=== PATIENT | female | born 1990 | race Caucasian/White ===

== ENCOUNTER 2016-10-29 23:13 | Emergency (ER) | payer OTHER ==
[2016-10-29 23:25] VITALS: PULSE 68; RESP 18
[2016-10-30] MEDS ORDERED: SODIUM CHLORIDE 0.9% 1,000 ML IV STA (00:07)
[2016-10-30] MEDS ORDERED: ACETAMINOPHEN TAB 500 MG TAB PO STA (00:07)
--- NOTE | 2016-10-30 00:14 | ED ---
Abdominal Pain HPI - General Chief Complaint: Abdominal Pain Stated Complaint: abd pain, 6 wks preg Time Seen by Provider: 10/29/16 23:48 Source: patient, RN notes reviewed Mode of arrival: ambulatory Limitations: no limitations - History of Present Illness Initial Comments: 26-year-old female presents emergency Department chief complaint of abdominal pain in . Patient states about an hour ago she developed this abdominal pain. Patient states that it is always a dull achy type pain and minimal become stabbing at random. Patient states certain movements seem to make it worse. Patient states that she denies nausea or vomiting associated with the pain but the pain gets too bad she will become nauseous. Patient denies any fever chills. Patient denies any burning or stinging with urination. Patient states she is a . Patient states she's believe she is about 6 weeks . Patient states she has not had ultrasound yet in this . Patient states she was concerned due to the severity of her pain so she thought that she should be evaluated.Patient denies any recent fever, chills , shortness of breath, chest pain, back pain, nausea vomiting, numbness or tingling, dysuria or hematuria, constipation or diarrhea, headaches or visual changes, or any other current symptoms. - Related Data Home Medications Medication Instructions Recorded Confirmed Pnv with Ca,No.72/Iron/FA 1 tab PO DAILY 10/29/16 10/29/16 [ Plus Tablet] Previous Rx's Medication Instructions Recorded Nitrofurantoin Macrocrystal 100 mg PO BID #14 cap 10/30/16 [Macrodantin] Allergies Allergy/AdvReac Type Severity Reaction Status Date / Time ciprofloxacin [From Cipro] Allergy Unknown Verified 10/29/16 23:33 Review of Systems ROS Statement: Those systems with pertinent positive or pertinent negative responses have been documented in the HPI. ROS Other: All systems not noted in ROS Statement are negative. Past Medical History Past Medical History: No Reported History History of Any Multi-Drug Resistant Organisms: None Reported Past Surgical History: Section, Cholecystectomy, Orthopedic Surgery Past Psychological History: No Psychological Hx Reported Smoking Status: Current every day smoker Past Alcohol Use History: Rare Past Drug Use History: None Reported General Exam - General Exam Comments Initial Comments: General: The patient is awake and alert, in no distress, and does not appear acutely ill. Eye: Pupils are equal, round and reactive to light, extra-ocular movements are intact; there is normal conjunctiva bilaterally. No signs of icterus. Ears, nose, mouth and throat: There are moist mucous membranes. Neck: The neck is supple, there is no tenderness. Cardiovascular: There is a regular rate and rhythm. No murmur, rub or gallop is appreciated. Respiratory: Lungs are clear to auscultation, respirations are non-labored, breath sounds are equal. No wheezes, stridor, rales, or rhonchi. Gastrointestinal: Soft, non-distended, right lower quadrant tenderness of the abdomen without masses or organomegaly noted. There is no rebound or guarding present. No CVA tenderness. Bowel sounds are unremarkable. Back: There is no tenderness to palpation in the midline. There is no obvious deformity. No rashes noted. Musculoskeletal: Normal ROM, no tenderness, There is no pedal edema. There is no calf tenderness or swelling. Sensation intact. Pulses equal bilaterally 2+. Neurological: CN II-XII intact, There are no obvious motor or sensory deficits. Coordination appears grossly intact. Speech is normal. Skin: Skin is warm and dry and no rashes or lesions are noted. Psychiatric: Cooperative, appropriate mood & affect, normal judgment. Limitations: no limitations External exam: Present: normal external exam Speculum exam: Present: normal speculum exam By manual exam: Present: adnexal tenderness (Minimal tenderness on the right) Course Vital Signs 10/29/16 23:22 Temperature 97.6 F Pulse Rate 68 Respiratory 18 Rate Blood Pressure 122/58 O2 Sat by Pulse 97 Oximetry Medical Decision Making - Medical Decision Making 26-year-old female presents emergency Department chief complaint of right lower quadrant abdominal pain in . At this time ultrasound does not show a viable IUP however there does appear to be a hemorrhagic cyst. At this time we discussed that patient's pain is mostly the from the hemorrhagic cyst as well as a suspicion for UTI in the urine. This time we discussed this on antibiotics are discussed Tylenol for pain control. She is feeling better in the room. Pelvic exam did not have any cervical motion tenderness. Patient did not have extreme right adnexa tenderness after receiving the Tylenol. We did discuss at this time we have not officially rule out ectopic we did discuss that she needs follow-up with a repeat hCG to further evaluate for this. We did discuss return parameters and follow-up with [facility]. The patient stated that she understood all her questions have been answered. She will be discharged. - Lab Data Result diagrams: 10/30/16 00:25 10/30/16 00:25 Lab Results 10/30/16 10/30/16 10/30/16 Range/Units 00:25 00:25 00:25 WBC 13.0 H (3.8-10.6) k/uL RBC 4.57 (3.80-5.40) m/uL Hgb 13.8 (11.4-16.0) gm/dL Hct 40.9 (34.0-46.0) % MCV 89.6 (80.0-100.0) fL MCH 30.2 (25.0-35.0) pg MCHC 33.7 (31.0-37.0) g/dL RDW 13.8 (11.5-15.5) % Plt Count 257 (150-450) k/uL Neutrophils % (Manual) 76.0 % Lymphocytes % (Manual) 20.0 % Monocytes % (Manual) 4.0 % Neutrophils # (Manual) 9.9 H (1.3-7.7) k/uL Lymphocytes # (Manual) 2.6 (1.0-4.8) k/uL Monocytes # (Manual) 0.5 (0-1.0) k/uL Nucleated RBCs 0 (0-0) /100 WBC Manual Slide Review Performed PT (9.0-12.0) sec INR (<1.1) APTT (22.0-30.0) sec Sodium 142 (137-145) mmol/L Potassium 4.3 (3.5-5.1) mmol/L Chloride 107 (98-107) mmol/L Carbon Dioxide 23 (22-30) mmol/L Anion Gap 12 mmol/L BUN 9 (7-17) mg/dL Creatinine 0.70 (0.52-1.04) mg/dL Est GFR (MDRD) Af Amer >60 (>60 ml/min/1.73 sqM) Est GFR (MDRD) Non-Af >60 (>60 ml/min/1.73 sqM) Glucose 98 (74-99) mg/dL Calcium 9.9 (8.4-10.2) mg/dL Total Bilirubin 0.3 (0.2-1.3) mg/dL AST 15 (14-36) U/L ALT 24 (9-52) U/L Alkaline Phosphatase 69 (38-126) U/L Total Protein 7.5 (6.3-8.2) g/dL Albumin 4.4 (3.5-5.0) g/dL HCG, Quant 689.3 mIU/mL Urine Color Urine Appearance (Clear) Urine pH (5.0-8.0) Ur Specific [place] (1.001-1.035) Urine Protein (Negative) Urine Glucose (UA) (Negative) Urine Ketones (Negative) Urine Blood (Negative) Urine Nitrite (Negative) Urine Bilirubin (Negative) Urine Urobilinogen (<2.0) mg/dL Ur Leukocyte Esterase (Negative) Urine RBC (0-5) /hpf Urine WBC (0-5) /hpf Ur Squamous Epith Cells (0-4) /hpf Amorphous Sediment (None) /hpf Urine Mucus (None) /hpf Blood Type O Positive Blood Type Recheck No Antibody Screen NEGATIVE Spec Expiration Date 11/02/2016232410/30/16 10/30/16 Range/Units 00:25 00:25 WBC (3.8-10.6) k/uL RBC (3.80-5.40) m/uL Hgb (11.4-16.0) gm/dL Hct (34.0-46.0) % MCV (80.0-100.0) fL MCH (25.0-35.0) pg MCHC (31.0-37.0) g/dL RDW (11.5-15.5) % Plt Count (150-450) k/uL Neutrophils % (Manual) % Lymphocytes % (Manual) % Monocytes % (Manual) % Neutrophils # (Manual) (1.3-7.7) k/uL Lymphocytes # (Manual) (1.0-4.8) k/uL Monocytes # (Manual) (0-1.0) k/uL Nucleated RBCs (0-0) /100 WBC Manual Slide Review PT 10.6 (9.0-12.0) sec INR 1.0 (<1.1) APTT 25.1 (22.0-30.0) sec Sodium (137-145) mmol/L Potassium (3.5-5.1) mmol/L Chloride (98-107) mmol/L Carbon Dioxide (22-30) mmol/L Anion Gap mmol/L BUN (7-17) mg/dL Creatinine (0.52-1.04) mg/dL Est GFR (MDRD) Af Amer (>60 ml/min/1.73 sqM) Est GFR (MDRD) Non-Af (>60 ml/min/1.73 sqM) Glucose (74-99) mg/dL Calcium (8.4-10.2) mg/dL Total Bilirubin (0.2-1.3) mg/dL AST (14-36) U/L ALT (9-52) U/L Alkaline Phosphatase (38-126) U/L Total Protein (6.3-8.2) g/dL Albumin (3.5-5.0) g/dL HCG, Quant mIU/mL Urine Color Yellow Urine Appearance Cloudy H (Clear) Urine pH 6.5 (5.0-8.0) Ur Specific [place] 1.013 (1.001-1.035) Urine Protein Negative (Negative) Urine Glucose (UA) Negative (Negative) Urine Ketones Negative (Negative) Urine Blood Negative (Negative) Urine Nitrite Negative (Negative) Urine Bilirubin Negative (Negative) Urine Urobilinogen <2.0 (<2.0) mg/dL Ur Leukocyte Esterase Moderate H (Negative) Urine RBC 13 H (0-5) /hpf Urine WBC 38 H (0-5) /hpf Ur Squamous Epith Cells 1 (0-4) /hpf Amorphous Sediment Rare H (None) /hpf Urine Mucus Rare H (None) /hpf Blood Type Blood Type Recheck Antibody Screen Spec Expiration Date - Radiology Data Radiology results: report reviewed, image reviewed Disposition Clinical Impression: Right ovarian cyst, Abdominal pain affecting , UTI (urinary tract infection) Disposition: HOME SELF-CARE Condition: Stable Instructions: Abdominal Pain in (ED) Additional Instructions: Please use medication as discussed. Please follow up with family doctor if symptoms have not improved over the next two days. Please return to the emergency room if your symptoms increase or worsen or for any other concerns. Prescriptions: Nitrofurantoin Macrocrystal [Macrodantin] 100 mg PO BID #14 cap Referrals: Miguel Chung MD [Primary Care Provider] - 1-2 days Niver,Marva, MD [STAFF PHYSICIAN] - 1-2 days Time of Disposition: 02:02
[2016-10-30 00:39] LABS: Aty Lym Flag Marked; CH 29.9; CHCM 33.5; HCT 40.9 % (34.0-46.0); HDW 2.37; HGB 13.8 gm/dL (11.4-16.0); MCH 30.2 pg (25.0-35.0); MCHC 33.7 g/dL (31.0-37.0); MCV 89.6 fL (80.0-100.0); MPO Flag Slight; Mean Platelet Volume 7.3; RBC 4.57 m/uL (3.80-5.40); RDW 13.8 % (11.5-15.5); WBC (Perox) 12.68
[2016-10-30 00:46] LABS: Amorphous Sediment,Urine Rare /hpf; Appearance,Urine Cloudy (Clear); Bilirubin,Urine Negative (Negative); Glucose,Urine (UA) Negative (Negative); Ketones,Urine Negative (Negative); Leukocyte Esterase,Urine Moderate (Negative); Mucus,Urine Rare /hpf; Nitrite,Urine Negative (Negative); PH, Urine 6.5 (5.0-8.0); Particle Count 22025; Protein,Urine Negative (Negative); RBC,Urine 13 /hpf (0-5); Specific Gravity,Urine 1.013 (1.001-1.035); Squamous Epithelial Cell,Urine 1 /hpf (0-4); UA Billing (MACRO vs. MICRO) MICRO; Urobilinogen,Urine <2.0 mg/dL (<2.0); WBC,Urine 38 /hpf (0-5)
[2016-10-30 00:48] LABS: Partial Thromboplastin Time 25.1 sec (22.0-30.0); Prothrombin Time 10.6 sec (9.0-12.0)
[2016-10-30 00:50] LABS: ALT 24 U/L (9-52); AST 15 U/L (14-36); Alkaline Phosphatase 69 U/L (38-126); Anion Gap 12 mmol/L; Blood Urea Nitrogen 9 mg/dL (7-17); Calcium 9.9 mg/dL (8.4-10.2); Carbon Dioxide 23 mmol/L (22-30); Chloride 107 mmol/L (98-107); Glucose 98 mg/dL (74-99); Non-African American GFR(MDRD) >60 (>60 ml/min/1.73 sqM); Potassium 4.3 mmol/L (3.5-5.1); Sodium 142 mmol/L (137-145); Total Bilirubin 0.3 mg/dL (0.2-1.3); Total Protein 7.5 g/dL (6.3-8.2)
[2016-10-30 01:06] LABS: HCG,Quantitative Serum 689.3 mIU/mL
--- NOTE | 2016-10-30 01:13 | US ---
EXAM: US Pelvis Complete, Transabdominal. US Pelvis, Transvaginal. CLINICAL HISTORY: Patient is unsure. She had some bleeding in early september. Last normal menstrual period was 09/14/2016. Pelvic Pain. No bleeding. Patient states she had minimal bleeding in early september. Beta HcG (if available): Not available at time of exam TECHNIQUE: Real-time transabdominal and transvaginal pelvic ultrasound (complete) with image documentation. Transvaginal imaging was used for better evaluation of the endometrium and adnexa. COMPARISON: No relevant prior studies available. FINDINGS: Uterus/cervix: Uterus: 9.1 x 4.6 x 5.0 cm. Endometrium measures 0.4 cm No myometrial mass. Right ovary: Hypoechoic area visualized on right ovary, likely represents a complex cyst measuring 1.9 x 1.2 x 1.3 cm. Right Ovary measures about 4.6 x 2.7 x 2.6 cm. Normal blood flow. Left ovary: Left Ovary measures about 2.9 x 1.5 x 2.3 cm. Normal blood flow. Free fluid: free fluid visualized in the posterior cul de sac and adjacent to the left ovary Bladder: Unremarkable as visualized. Wall is normal thickness for degree of distention. IMPRESSION: 1. Hypoechoic area visualized on right ovary, likely represents a complex/hemorrhagic cyst measuring 1.9 x 1.2 x 1.3 cm. 2. No IUP seen at this time.
[2016-10-30 01:19] LABS: Add Differential Manual Differential
[2016-10-30 01:21] LABS: Manual Review Performed; Nucleated Red Blood Cells 0 /100 WBC (0-0); Total Cells Counted 100
[2016-10-30 02:46] VITALS: BP 112/50; TEMP 97.7
== END 2016-10-30 02:45 | disposition home or self-care (01) ==
LOC: EC 23:13
DX: O34.81 Maternal care for other abnormalities of pelvic organs, first trimester (principal); N83.201 Unspecified ovarian cyst, right side; O23.41 Unspecified infection of urinary tract in pregnancy, first trimester; O99.331 Smoking (tobacco) complicating pregnancy, first trimester; F17.200 Nicotine dependence, unspecified, uncomplicated; Z88.1 Allergy status to other antibiotic agents; Z90.49 Acquired absence of other specified parts of digestive tract; Z3A.01 Less than 8 weeks gestation of pregnancy
CPT/HCPCS: 36415; 76801; 76817; 80053; 81001; 84702; 85025; 85610; 85730; 86850; 86900; 86901; 87077; 87086; 87186; 96360; 99284

== ENCOUNTER → 2016-11-01 | Outpatient (CLI) | payer OTHER | END | disposition home or self-care (01) | LOC: LABMAIN 11:53 | PROVIDERS: ATTEND Physician Assistant | DX: O26.90 Pregnancy related conditions, unspecified, unspecified trimester (principal); Z3A.00 Weeks of gestation of pregnancy not specified | CPT/HCPCS: 36415; 84702 ==

== ENCOUNTER → 2016-11-24 | Outpatient (CLI) | payer OTHER | END | disposition home or self-care (01) | LOC: LABWHC1 15:07 | PROVIDERS: ATTEND Clinical Nurse Specialist Women's Health | DX: O03.9 Complete or unspecified spontaneous abortion without complication (principal) | CPT/HCPCS: 36415; 84702 ==

== ENCOUNTER → 2017-02-05 | Outpatient (CLI) | payer OTHER ==
[2017-02-05 11:06] LABS: CH 29.6; CHCM 33.7; HCT 38.8 % (34.0-46.0); HDW 2.26; HGB 13.4 gm/dL (11.4-16.0); MCH 30.5 pg (25.0-35.0); MCHC 34.5 g/dL (31.0-37.0); MCV 88.4 fL (80.0-100.0); Mean Platelet Volume 7.9; RBC 4.39 m/uL (3.80-5.40); RDW 13.2 % (11.5-15.5); WBC 14.2 k/uL (3.8-10.6)
[2017-02-05 11:53] LABS: Hepatitis B Surface Ag Index 0.05
[2017-02-05 13:13] LABS: Hemoglobin A1C 5.4 % (4.2-6.1)
[2017-02-05 15:27] LABS: Treponemal Ab Non-Reactive (Non-Reactive)
== END | disposition home or self-care (01) ==
LOC: LABWHC1 09:39
PROVIDERS: ATTEND Obstetrics & Gynecology
DX: Z34.80 Encounter for supervision of other normal pregnancy, unspecified trimester (principal)
CPT/HCPCS: 36415; 82950; 83036; 85027; 86762; 86780; 86850; 86900; 86901; 87086; 87340; 87390

== ENCOUNTER 2017-02-15 17:41 | Emergency (ER) | payer OTHER ==
[2017-02-15] MEDS ORDERED: ACETAMINOPHEN TAB 500 MG TAB PO STA (19:29)
[2017-02-15] MEDS ORDERED: SODIUM CHLORIDE 0.9% 1,000 ML IV STA (19:29)
[2017-02-15] MEDS ORDERED: diphenhydrAMINE 50 MG/ML 1 ML VIAL IVP STA (19:29)
[2017-02-15] MEDS ORDERED: METOCLOPRAMIDE 5 MG/ML 2 ML VIAL IVP STA (19:29)
[2017-02-15 20:00] LABS: Aty Lym Flag Marked; CHCM 34.5; HCT 35.5 % (34.0-46.0); HDW 2.32; HGB 12.3 gm/dL (11.4-16.0); MCH 30.2 pg (25.0-35.0); MCHC 34.6 g/dL (31.0-37.0); MCV 87.3 fL (80.0-100.0); MPO Flag Slight; Mean Platelet Volume 7.9; RBC 4.07 m/uL (3.80-5.40); RDW 13.9 % (11.5-15.5); WBC 16.4 k/uL (3.8-10.6); WBC (Perox) 16.44
[2017-02-15 20:04] LABS: Appearance,Urine Clear (Clear); Bacteria,Urine Occasional /hpf; Bilirubin,Urine Negative (Negative); Glucose,Urine (UA) Negative (Negative); Ketones,Urine Negative (Negative); Leukocyte Esterase,Urine Moderate (Negative); Nitrite,Urine Negative (Negative); PH, Urine 7.5 (5.0-8.0); Particle Count 1772; Protein,Urine Negative (Negative); RBC,Urine 2 /hpf (0-5); Specific Gravity,Urine 1.002 (1.001-1.035); Squamous Epithelial Cell,Urine 2 /hpf (0-4); UA Billing (MACRO vs. MICRO) MICRO; Urobilinogen,Urine <2.0 mg/dL (<2.0); WBC,Urine 10 /hpf (0-5)
[2017-02-15 20:20] LABS: Add Differential Manual Differential
[2017-02-15 20:22] LABS: Manual Review Performed; Nucleated Red Blood Cells 0 /100 WBC (0-0); Total Cells Counted 100
[2017-02-15 20:23] LABS: Toxic Granulation Present
--- NOTE | 2017-02-15 20:29 | ED ---
Headache HPI - General Chief Complaint: Headache Stated Complaint: HEADACHE FOR 2 DAYS Time Seen by Provider: 02/15/17 19:21 Source: RN notes reviewed, old records reviewed Mode of arrival: ambulatory Limitations: no limitations - History of Present Illness Initial Comments: Is a 26-year-old female presenting to the emergency Department chief complaint of migraine headache for the past 2 days. Patient reports she's also had some upper respiratory symptoms including cough. Patient reports that she isn't taking her antibiotic and Tylenol without any relief of the migraine-like headache. Patient reports that she's had no neck pain, fevers, or chills. She reports that she's had no chest pain or shortness of breath. She is currently 14 weeks her CARDIAC CATH LAB MANAGER is Dr. Archuleta. She denies any vaginal discharge or bleeding or urinary symptoms. - Related Data Home Medications Medication Instructions Recorded Confirmed Pnv,Calcium 72/Iron/Folic Acid 1 tab PO DAILY 10/29/16 02/15/17 [ Plus Tablet] Amoxicillin 500 mg PO BID 02/15/17 02/15/17 Allergies Allergy/AdvReac Type Severity Reaction Status Date / Time ciprofloxacin [From Cipro] Allergy DIZZINESS Verified 02/15/17 19:29 Review of Systems ROS Statement: Those systems with pertinent positive or pertinent negative responses have been documented in the HPI. ROS Other: All systems not noted in ROS Statement are negative. Past Medical History Past Medical History: No Reported History History of Any Multi-Drug Resistant Organisms: None Reported Past Surgical History: Section, Cholecystectomy, Orthopedic Surgery Past Psychological History: No Psychological Hx Reported Smoking Status: Current every day smoker Past Alcohol Use History: Rare Past Drug Use History: None Reported General Exam - General Exam Comments Initial Comments: This is a well-appearing pleasant 26-year-old female. Patient does not appear to be any acute distress. Limitations: no limitations General appearance: alert, in no apparent distress Head exam: Present: atraumatic, normocephalic, normal inspection Eye exam: Present: normal appearance, PERRL, EOMI. Absent: scleral icterus, conjunctival injection, periorbital swelling ENT exam: Present: normal exam, mucous membranes moist Neck exam: Present: normal inspection. Absent: tenderness, meningismus, lymphadenopathy Respiratory exam: Present: normal lung sounds bilaterally. Absent: respiratory distress, wheezes, rales, rhonchi, stridor Cardiovascular Exam: Present: regular rate, normal rhythm, normal heart sounds. Absent: systolic murmur, diastolic murmur, rubs, gallop, clicks GI/Abdominal exam: Present: soft, normal bowel sounds. Absent: distended, tenderness, guarding, rebound, rigid Extremities exam: Present: normal inspection, full ROM, normal capillary refill. Absent: tenderness, pedal edema, joint swelling, calf tenderness Back exam: Present: normal inspection Neurological exam: Present: alert, oriented X3, CN II-XII intact Expanded Patient oriented to: Present: person, place, time Speech: Present: fluid speech Cranial nerves: EOM's Intact: Normal Cerebellar function: Finger to Nose: Normal Upper motor neuron: Pronator Drift: Normal Sensory exam: Upper Extremity Light Touch: Normal, Lower Extremity Light Touch: Normal Motor strength exam: RUE: 5, LUE: 5, RLE: 5, LLE: 5 Eye Response: (4) open spontaneously Motor Response: (6) obeys commands Verbal Response: (5) oriented [place] Total: 15 Psychiatric exam: Present: normal affect, normal mood Skin exam: Present: warm, dry, intact, normal color. Absent: rash Course Vital Signs 02/15/17 18:30 Temperature 98.0 F Pulse Rate 87 Respiratory 18 Rate Blood Pressure 138/66 O2 Sat by Pulse 99 Oximetry Medical Decision Making - Medical Decision Making Is a 26-year-old female presenting to the emergency Department chief complaint of migraine headache for the past 2 days. Patient reports she's also had some upper respiratory symptoms including cough. Patient reports that she isn't taking her antibiotic and Tylenol without any relief of the migraine-like headache. Patient was given Reglan, Benadryl, IV fluids. CBC BMP and urinalysis obtained. Patient's CBC is somewhat elevated but could be due to regnancy and her current upper respiratory infection. She has no meningeal signs or any other symptoms. Patient is neurologically intact. Patient's heart tones measuring 150. Lab work was reviewed and show mild leukocytosis with could be related to her sinusitis as well as . Patient started on amoxicillin. Patient was evaluated by Dr. Salazar as well. Discussed possibility of computed tomography scan. Patient at this time declines. Patient has been advised to rest, remain hydrated. Return if there is any worsening signs or symptoms. Patient agrees to treatment plan will comply. - Lab Data Result diagrams: 02/15/17 19:50 Lab Results 02/15/17 02/15/17 Range/Units 19:50 19:50 WBC 16.4 H (3.8-10.6) k/uL RBC 4.07 (3.80-5.40) m/uL Hgb 12.3 (11.4-16.0) gm/dL Hct 35.5 (34.0-46.0) % MCV 87.3 (80.0-100.0) fL MCH 30.2 (25.0-35.0) pg MCHC 34.6 (31.0-37.0) g/dL RDW 13.9 (11.5-15.5) % Plt Count 275 (150-450) k/uL Neutrophils % (Manual) 69.0 % Band Neutrophils % 1.0 % Lymphocytes % (Manual) 29.0 % Eosinophils % (Manual) 1.0 % Neutrophils # (Manual) 11.5 H (1.3-7.7) k/uL Lymphocytes # (Manual) 4.8 (1.0-4.8) k/uL Eosinophils # (Manual) 0.2 (0-0.7) k/uL Nucleated RBCs 0 (0-0) /100 WBC Manual Slide Review Performed Toxic Granulation Present Poikilocytosis (manual Present Urine Color Light Yellow Urine Appearance Clear (Clear) Urine pH 7.5 (5.0-8.0) Ur Specific [place] 1.002 (1.001-1.035) Urine Protein Negative (Negative) Urine Glucose (UA) Negative (Negative) Urine Ketones Negative (Negative) Urine Blood Trace H (Negative) Urine Nitrite Negative (Negative) Urine Bilirubin Negative (Negative) Urine Urobilinogen <2.0 (<2.0) mg/dL Ur Leukocyte Esterase Moderate H (Negative) Urine RBC 2 (0-5) /hpf Urine WBC 10 H (0-5) /hpf Ur Squamous Epith Cells 2 (0-4) /hpf Urine Bacteria Occasional H (None) /hpf Disposition Clinical Impression: Headache, Sinusitis Disposition: HOME SELF-CARE Condition: Good Instructions: Acute Headache (ED), (ED) Additional Instructions: Patient advised to complete the antibiotics as previously prescribed. Rest, remain hydrated. Return to the emergency department if any alarming signs or symptoms occur. Referrals: Miguel Chung MD [Primary Care Provider] - 1-2 days Time of Disposition: 21:17
[2017-02-15 21:29] VITALS: BP 104/55; PULSE 60; RESP 16; TEMP 98
== END 2017-02-15 21:29 | disposition home or self-care (01) ==
LOC: EC 17:41
DX: O99.512 Diseases of the respiratory system complicating pregnancy, second trimester (principal); J32.9 Chronic sinusitis, unspecified; O99.332 Smoking (tobacco) complicating pregnancy, second trimester; F17.200 Nicotine dependence, unspecified, uncomplicated; R40.2412 Glasgow coma scale score 13-15, at arrival to emergency department; Z3A.14 14 weeks gestation of pregnancy; Z86.69 Personal history of other diseases of the nervous system and sense organs; Z90.49 Acquired absence of other specified parts of digestive tract; Z88.1 Allergy status to other antibiotic agents; Z79.899 Other long term (current) drug therapy
CPT/HCPCS: 99284; 96374; 96375; 96361 ×2; 36415; 85025; 81001; J1200; J2765

== ENCOUNTER → 2017-05-13 | Outpatient (CLI) | payer OTHER | END | disposition home or self-care (01) | LOC: LABWHC1 08:43 | PROVIDERS: ATTEND Obstetrics & Gynecology | DX: Z34.90 Encounter for supervision of normal pregnancy, unspecified, unspecified trimester (principal); Z3A.00 Weeks of gestation of pregnancy not specified | CPT/HCPCS: 36415; 82950 ==

== ENCOUNTER 2017-08-09 09:57 | Inpatient (IN) | payer OTHER ==
[2017-08-04 23:08] VITALS: BMI 31.4
[2017-08-09] MEDS ORDERED: CITRIC ACID-SODIUM CITRATE 15 ML CUP PO ONE (10:00)
[2017-08-09] MEDS: LACTATED RINGERS 1,000 ML IV SCH ×2 (10:40→15:28)
[2017-08-09] MEDS ORDERED: ceFAZolin IN SWFI 2 GM/20 ML SYRINGE IVP ONE (11:09)
[2017-08-09 11:23] LABS: HCT 37.2 % (34.0-46.0); HGB 12.3 gm/dL (11.4-16.0); MCH 29.5 pg (25.0-35.0); MCV 89.4 fL (80.0-100.0); Mean Platelet Volume 8.9; Platelet Count 255 k/uL (150-450); RBC 4.16 m/uL (3.80-5.40); WBC 15.6 k/uL (3.8-10.6)
--- NOTE | 2017-08-09 11:38 | P.HPOB ---
History of Present Illness H&P Date: 08/09/17 This is a 27-year-old white female 3 para 1011 EDC 08/13/2017 at 39-3/7 weeks' gestation. Patient presents today for repeat low transverse section and tubal ligation. Her has been essentially unremarkable, except for poor maternal weight gain. Weekly nonstress tests have all been reactive. Fetus is been active throughout the . She denies fluid leakage or vaginal bleeding. Past medical history is significant for chronic rhinitis and sinusitis, history of ovarian cysts. Past surgical history section 2011, cholecystectomy 2011, right knee arthroscopy in the past. Current medications vitamins daily. ALLERGIES to send to which reports dizziness. Family history is significant for hypertension, cerebrovascular accidents, and myocardial infarctions. Past surgical history is significant for section 2011. Social history patient is a smoker, she admits to one half pack per day tobacco , she is single and father of the baby is involved. history blood type is O+, rubella status immune. Urine culture, hepatitis B surface antigen, HIV testing, gonorrhea and chlamydia cultures all negative. One-hour Glucola 112. Group B strep culture positive. On exam this is a pleasant young female, 5 foot 2 inches, 173 pounds, blood pressure 113/61. The general physical exam is within normal limits. The chest is clear. Patient has poor dentition. Extremities reveal no edema. heart rate is consistent with reactive NST. Cervix is long posterior and closed. Impression: 39-3/7 weeks intrauterine , previous section declining option for . Patient requesting permanent tubal sterilization. Plan: Prophylactic antibiotics are given. We will proceed with repeat low transverse section and tubal ligation. All risks benefits and alternatives of this plan have been reviewed in detail. Review of Systems Negative except as in HPI Past Medical History Past Medical History: GERD/Reflux History of Any Multi-Drug Resistant Organisms: None Reported Past Surgical History: Section, Cholecystectomy, Orthopedic Surgery Additional Past Surgical History / Comment(s): arthroscopy knee Past Anesthesia/Blood Transfusion Reactions: No Reported Reaction Past Psychological History: No Psychological Hx Reported Smoking Status: Current every day smoker Past Alcohol Use History: Rare Additional Past Alcohol Use History / Comment(s): 1/2ppd since teens Past Drug Use History: None Reported - Past Family History Mother Family Medical History: CVA/TIA Additional Family Medical History / Comment(s): in her 40's due to elevated BP Medications and Allergies Home Medications Medication Instructions Recorded Confirmed Type Pnv,Calcium 72/Iron/Folic Acid 1 tab PO DAILY 10/29/16 08/09/17 History [ Plus Tablet] Ferrous Sulfate [Iron] 325 mg PO DAILY 07/01/17 08/03/17 History Ranitidine HCl [Zantac] 150 mg PO DAILY 08/03/17 08/03/17 History Allergies Allergy/AdvReac Type Severity Reaction Status Date / Time ciprofloxacin [From Cipro] Allergy DIZZINESS Verified 08/03/17 15:46 Exam - Vital Signs Vital signs: Vital Signs Temp Pulse Resp BP Pulse Ox 08/09/17 10:08 97.9 F 77 16 113/61 98 Intake and Output 08/08/17 08/09/17 08/09/17 22:59 06:59 14:59 Other: Weight 78.018 kg Patient Weight 08/10/17 06:59 Weight 78.018 kg See dictation under HPI please Results Result Diagrams: 08/09/17 10:35 Abnormal Lab Results - Last 24 Hours (Table) 08/09/17 Range/Units 10:35 WBC 15.6 H (3.8-10.6) k/uL Assessment and Plan Plan: For repeat low transverse section and tubal ligation. Prophylactic antibiotics to be given. Time with Patient: Less than 30
[2017-08-09 11:39] LABS: Band Neutrophils % 1 %; Myelocytes # (M) 0.31 k/uL (0); Myelocytes % 2 %; Nucleated Red Blood Cells 0 /100 WBC (0-0)
[2017-08-09 11:41] LABS: Eosinophils # (M) 0.16 k/uL (0-0.7); Monocytes # (M) 0.62 k/uL (0-1.0); Neutrophils % (M) 78 %; Total Cells Counted 200; Toxic Granulation Present
[2017-08-09] MEDS ORDERED: PHENYLEPHRINE-0.9% NACL SYG 1 MG/10 ML SYRINGE ONE (11:42)
[2017-08-09] MEDS ORDERED: OXYTOCIN 10 UNIT/ML 1 ML VIAL ONE (11:42)
[2017-08-09] MEDS ORDERED: fentaNYL (PF) 50 MCG/ML 2 ML AMP ONE (11:42)
[2017-08-09] MEDS ORDERED: ONDANSETRON 4 MG/2 ML VIAL ONE (11:42)
[2017-08-09] MEDS ORDERED: NALBUPHINE 10 MG/ML AMPUL ONE (11:42)
[2017-08-09] MEDS ORDERED: KETOROLAC 30 MG/ML 1 ML VIAL ONE (11:42)
[2017-08-09] MEDS ORDERED: MORPHINE SULFATE (PF) 0.3 MG/0.3 ML SYR ONE (11:42)
[2017-08-09] MEDS ORDERED: diphenhydrAMINE 50 MG/ML 1 ML VIAL IVP PRN ×3 (12:16→12:38)
[2017-08-09] MEDS ORDERED: NALOXONE 0.4 MG/ML 1 ML VIAL IV PRN ×2 (12:16→12:38)
[2017-08-09] MEDS ORDERED: MORPHINE SULFATE 5 MG/ML SYRINGE IVP PRN (12:16)
[2017-08-09] MEDS ORDERED: ONDANSETRON 4 MG/2 ML VIAL IVP PRN ×2 (12:16→12:38)
[2017-08-09] MEDS ORDERED: ACETAMINOPHEN TAB 325 MG TAB PO PRN ×2 (12:38→12:40)
[2017-08-09] MEDS ORDERED: diphenhydrAMINE 25 MG CAP PO PRN (12:38)
[2017-08-09] MEDS ORDERED: diphenhydrAMINE 50 MG CAP PO PRN (12:38)
[2017-08-09] MEDS ORDERED: METOCLOPRAMIDE 5 MG/ML 2 ML VIAL IVP PRN (12:38)
[2017-08-09] MEDS ORDERED: ZOLPIDEM 5 MG TAB PO PRN (12:38)
--- NOTE | 2017-08-09 12:38 | P.OP ---
Date of Procedure: 08/09/17 Preoperative Diagnosis: 39-3/7 weeks, undesired fertility, previous declining Postoperative Diagnosis: Liveborn male infant, nuchal cord 1. Procedure(s) Performed: Repeat low transverse section with tubal ligation Anesthesia: spinal Surgeon: Marva Sargent Director Public #1: Juanita Deshpande Estimated Blood Loss (ml): 600 IV fluids (ml): 900 Urine output (ml): 200 Pathology: other Condition: stable (Placenta) Disposition: PACU Description of Procedure: Patient is brought to the operating suite where a spinal with Duramorph is administered. She's placed in the dorsal supine position with left lateral uterine displacement. Antibiotics are given. The appropriate timeout is performed to assure proper patient and procedural identification, and patient's desire for tubal ligation is once again confirmed. The abdomen is prepped and draped in the usual sterile fashion. The analgesia is checked and noted to be adequate. A repeat low transverse skin incision is made, this is carried down through the thin subcutaneous layer of approximately 2 cm. The fascia is isolated, scored, and extended bilaterally with curved Mackey scissors. The peritoneum is next identified and incised, there was no bowel or bladder involvement. The bladder blade is placed over the bladder and at all times the bladder is kept well from the operative field to avoid bladder and/or ureteral injury. A repeat low transverse uterine incision is made and carried down through the myometrium. Artificial amniorrhexis reveals clear fluid. The uterine incision is extended with blunt dissection. The 's head is delivered in the occiput anterior position. There is a nuchal cord 1 that was easily reduced. The nasopharynx, and external nares are all bulb suctioned on the abdomen. Patient is officially delivered of a liveborn male at 1203 hrs. Umbilical cord is doubly clamped and ligated, he is handed to waiting nurses for evaluation where scores of 8 and 9 at one and 5 minutes respectively are given. The placenta is delivered manually, it is inspected and noted to be intact with trivascular cord at 1204 hrs. The uterus is swept clean with a sterile sponge to avoid any retained products of conception. The uterus is externalized. It is massaged. Pitocin is given. The edges of the incision are grasped with Garza clamps. The uterus is closed in a single full- thickness locking stitch of 0 Vicryl for excellent hemostasis and reapproximation. The abdomen is suctioned with suction on guard. Filshie clips are used in the isthmic portions of both tubes, with care to traverse the entire diameter of the tube into the mesal salpinx. Fimbria are identified for proper placement. Ovaries are normal to inspection. Uterus is gently placed back into the abdominal cavity. Bilateral gutters are inspected and cleaned. Again, hemostasis is excellent. The peritoneum was allowed to close by secondary intention. The fascia is closed in a running stitch of 0 Vicryl with over ligation in the midline. Subcutaneous tissue was irrigated, noted to be clean and dry. It is reapproximated with 3-0 Vicryl in a running stitch. 4-0 undyed Monocryl is used in a subcuticular manner for final skin closure. Steri-Strips and Mastisol are applied to the wound. The uterus is massaged for a small amount of blood. Maldonado is noted to be draining clear urine. Patient is brought back to recovery room in very good condition with stable vital signs including blood pressure 107/52, pulse 76. They are requesting circumcision further son.
[2017-08-09] MEDS: NICOTINE 21MG/24HR PATCH TRANSDERM SCH (15:27)
[2017-08-09] MEDS: KETOROLAC 30 MG/ML 1 ML VIAL IVP PRN (20:52)
[2017-08-09] MEDS: SENNOSIDES-DOCUSATE SODIUM 1 EACH TAB PO SCH (20:52)
[2017-08-10 01:06] VITALS: RESP 16
--- NOTE | 2017-08-10 06:28 | P.PN ---
Subjective Progress Note Date: 08/10/17 Principal diagnosis: Postoperative day #1 Slept well. Positive flatus. Pain well controlled. Objective - Vital Signs Vital signs: Vital Signs Temp 98.1 F 08/10/17 04:00 Pulse 56 L 08/10/17 04:00 Resp 16 08/10/17 05:00 BP 101/54 08/10/17 04:00 Pulse Ox 98 08/10/17 05:00 Intake & Output 08/09/17 08/09/17 08/10/17 06:59 18:59 06:59 Intake Total 360 Output Total 400 300 Balance -40 -300 Weight 78.018 kg Intake: Oral 360 Output: Urine 400 300 Straight 150 - Constitutional General appearance: Present: average body habitus, cooperative - EENT Eyes: Present: PERRLA ENT: Present: hearing grossly normal - Neck Thyroid: bilateral: normal size - Respiratory Respiratory: bilateral: CTA - Cardiovascular Rhythm: regular Heart sounds: normal: S1, S2 - Gastrointestinal General gastrointestinal: Present: normal bowel sounds - Genitourinary Genitourinary Comment(s): Fundus firm, symmetric, midline, 18 week size. Incision clean and dry, well approximated. - Integumentary Integumentary: Present: normal - Neurologic Neurologic: Present: CNII-XII intact - Musculoskeletal Musculoskeletal: Present: gait normal, strength equal bilaterally - Psychiatric Psychiatric: Present: A&O x's 3, appropriate affect, intact judgment & insight - Labs CBC & Chem 7: 08/09/17 10:35 Labs: Abnormal Lab Results - Last 24 Hours (Table) 08/09/17 Range/Units 10:35 WBC 15.6 H (3.8-10.6) k/uL Neutrophils # (Manual) 12.30 H (1.3-7.7) k/uL Myelocytes # (Manual) 0.31 H (0) k/uL Assessment and Plan Plan: Advance diet and activity. Circumcision this morning. Time with Patient: Less than 30
[2017-08-10] MEDS: LACTATED RINGERS 1,000 ML IV SCH ×5 (08:25→10:04)
--- NOTE | 2017-08-10 09:08 | P.PN ---
Progress Note - Text Anesthesia POD 1. Patient is status post under spinal anesthesia with intra-thecal preservative free morphine 300 g. Mild pruritus, good post- op analgesia, and no headache or other complications.
[2017-08-10 09:09] LABS: HCT 27.3 % (34.0-46.0); MCH 29.9 pg (25.0-35.0); MCHC 33.1 g/dL (31.0-37.0); MCV 90.3 fL (80.0-100.0); Mean Platelet Volume 8.8; Platelet Count 201 k/uL (150-450); RBC 3.02 m/uL (3.80-5.40); RDW 14.3 % (11.5-15.5); WBC 13.1 k/uL (3.8-10.6)
[2017-08-10 09:12] LABS: HGB 9.1 gm/dL (11.4-16.0)
[2017-08-10] MEDS: SENNOSIDES-DOCUSATE SODIUM 1 EACH TAB PO SCH ×2 (10:04→13:24)
[2017-08-10] MEDS: KETOROLAC 30 MG/ML 1 ML VIAL IVP PRN (10:12)
[2017-08-10 10:33] LABS: Band Neutrophils % 1 %; Eosinophils # (M) 0.13 k/uL (0-0.7); Lymphocytes # (M) 0.66 k/uL (1.0-4.8); Monocytes # (M) 0.26 k/uL (0-1.0); Neutrophils % (M) 91 %; Nucleated Red Blood Cells 0 /100 WBC (0-0); Total Cells Counted 100
[2017-08-10 10:34] LABS: Anisocytosis (M) Present
[2017-08-10] MEDS: Acetaminophen-Codeine 300-30mg TAB PO PRN (15:22)
[2017-08-10] MEDS: NICOTINE 21MG/24HR PATCH TRANSDERM SCH (15:23)
[2017-08-11] MEDS: Acetaminophen-Codeine 300-30mg TAB PO PRN ×2 (00:01→07:42)
--- NOTE | 2017-08-11 08:22 | P.DS ---
Providers Date of admission: 08/09/17 09:57 Expected date of discharge: 08/11/17 Attending physician: Marva [facility] Course: Is a 27-year-old white female 3 para 1011 EDC 08/13/2017 at 39-3/7 weeks ' gestation. Patient presented for repeat low transverse section and tubal ligation. was unremarkable, rubella status immune, blood type O positive, group B strep cultures positive. Please see my dictated history and physical for details. Her went a repeat low transverse section. She gave to a liveborn male infant with scores of 8 and 9 at one and 5 minutes respectively. Infant weight 3040 g or 6 lbs. 11 oz. Tubal ligation was performed without difficulty. Please see my dictated operative note for details. This morning the patient is doing well. She is voiding, ambulating, passing flatus without difficulty. Vital signs are stable and she has remained afebrile. Fundus is firm and in the midline, symmetric, 18 week size, nontender. Externally's are negative for edema. Chest is clear in all hicks. Patient is not breast-feeding, breasts are not engorged. [place] infant circumcision has been performed. Patient is being discharged home today in very good condition. She will follow- up with me in the office in have reminded her no intercourse, tampons or douching. No driving for 2 weeks. No heavy lifting. She will use over-the- counter ibuprofen products, 200 mg pills, 3 every 6 hours as needed for pain. She will continue taking her vitamin daily. I've asked her to call me with any fevers shakes or chills, foul smelling or copious lochia, with the passage of large blood clots, with any pain not alleviated by [id number] products, or indeed with any concerns. Infant will follow-up with is analyst as recommended. Patient Condition at Discharge: Good Plan - Discharge Summary New Discharge Prescriptions: No Action Pnv,Calcium 72/Iron/Folic Acid [ Plus Tablet] 1 tab PO DAILY Ferrous Sulfate [Iron] 325 mg PO DAILY Ranitidine HCl [Zantac] 150 mg PO DAILY Discharge Medication List Pnv,Calcium 72/Iron/Folic Acid [ Plus Tablet] 1 tab PO DAILY 10/29/16 [ History] Ferrous Sulfate [Iron] 325 mg PO DAILY 07/01/17 [History] Ranitidine HCl [Zantac] 150 mg PO DAILY 08/03/17 [History] Follow up Appointment(s)/Referral(s): Marva Sargent MD [STAFF PHYSICIAN] - 2 Weeks Discharge Disposition: HOME SELF-CARE
[2017-08-11 08:53] VITALS: BP 135/68; PULSE 74; TEMP 98.2
== END 2017-08-11 11:15 | disposition home or self-care (01) | DRG 766 ==
LOC: 4FBP 09:57
PROVIDERS: ADMIT Obstetrics & Gynecology; ATTEND Obstetrics & Gynecology
PROC: 0UB70ZZ Excision of Bilateral Fallopian Tubes, Open Approach (ICD-10-PCS; 2017-08-09)
PROC: 3E0R3NZ Introduction of Analgesics, Hypnotics, Sedatives into Spinal Canal, Percutaneous Approach (ICD-10-PCS; 2017-08-09)
PROC: 00HU33Z Insertion of Infusion Device into Spinal Canal, Percutaneous Approach (ICD-10-PCS; 2017-08-09)
PROC: 10D00Z1 Extraction of Products of Conception, Low, Open Approach (ICD-10-PCS; principal; 2017-08-09 12:00)
DX: O34.211 Maternal care for low transverse scar from previous cesarean delivery (principal); F17.200 Nicotine dependence, unspecified, uncomplicated; K21.9 Gastro-esophageal reflux disease without esophagitis; O99.62 Diseases of the digestive system complicating childbirth; O69.81X0 Labor and delivery complicated by cord around neck, without compression, not applicable or unspecified; O99.334 Smoking (tobacco) complicating childbirth; Z3A.39 39 weeks gestation of pregnancy; Z90.49 Acquired absence of other specified parts of digestive tract; Z37.0 Single live birth; Z82.49 Family history of ischemic heart disease and other diseases of the circulatory system; Z79.899 Other long term (current) drug therapy; Z88.1 Allergy status to other antibiotic agents
CPT/HCPCS: 85025; 86850; 86900; 86901; 88307

== ENCOUNTER 2017-12-02 14:53 | Emergency (ER) | payer OTHER ==
[2017-12-02 14:58] VITALS: BP 173/77; PULSE 75; RESP 20; TEMP 98.1
--- NOTE | 2017-12-02 15:23 | ED ---
ENT HPI - General Chief complaint: ENT Stated complaint: congestion/facial pain Time Seen by Provider: 12/02/17 15:15 Source: patient, RN notes reviewed Mode of arrival: ambulatory Limitations: no limitations - History of Present Illness Initial comments: This is a 27-year-old female who presents to the emergency department with chief complaint of right ear pain. Patient states that she developed right ear pain yesterday when she woke up from a nap in the afternoon. She also admits to a runny nose and phlegm in the back of her throat. She denies fevers or chills, cough, sore throat, chest pain or shortness breath, abdominal pain, nausea or vomiting, headache or dizziness. Patient states that she did clean out the ear with hydrogen peroxide. - Related Data Home Medications Medication Instructions Recorded Confirmed Ibuprofen/Pseudoephedrine HCl 1 tab PO Q6H PRN 12/02/17 12/02/17 [Advil Cold & Sinus Caplet] Previous Rx's Medication Instructions Recorded Amoxicillin 875 mg PO Q8HR #30 tablet 12/02/17 Loratadine [Claritin] 10 mg PO DAILY #10 tab 12/02/17 Allergies Allergy/AdvReac Type Severity Reaction Status Date / Time ciprofloxacin [From Cipro] AdvReac DIZZINESS Verified 12/02/17 15:18 Review of Systems ROS Statement: Those systems with pertinent positive or pertinent negative responses have been documented in the HPI. ROS Other: All systems not noted in ROS Statement are negative. Past Medical History Past Medical History: GERD/Reflux History of Any Multi-Drug Resistant Organisms: None Reported Past Surgical History: Section, Cholecystectomy, Orthopedic Surgery Additional Past Surgical History / Comment(s): arthroscopy knee Past Anesthesia/Blood Transfusion Reactions: No Reported Reaction Past Psychological History: No Psychological Hx Reported Smoking Status: Current every day smoker Past Alcohol Use History: Rare Past Drug Use History: None Reported - Past Family History Mother Family Medical History: CVA/TIA Additional Family Medical History / Comment(s): in her 40's due to elevated BP General Exam - General Exam Comments Initial Comments: General: Awake and alert, well-developed; in no apparent distress. Patient is tearful, stating that she is in a lot of pain. HEENT: Head atraumatic, normocephalic. Pupils are equal, round and reactive to light. Extraocular movements intact. Oropharynx moist without erythema or exudate. No tenderness on palpation of maxillary or frontal sinuses. Left TM is pearly without effusion. Right external ear canal is erythematous. The TM is dull appearing. Neck: Supple. Normal ROM. Cardiovascular: Regular rate and rhythm. No murmurs, rubs or gallops. Chest symmetrical. Respiratory: Lungs clear to auscultation bilaterally. No wheezes, rales or rhonchi. Normal respiratory effort with no use of accessory muscles. Musculoskeletal: Normal ROM, no tenderness bilateral upper and lower extremities. Ambulating normally. Skin: Spring, warm and dry without rashes or lesions. Neurological: Alert and oriented x3. CN II-XII grossly intact. Speech is fluent and answers are appropriate. No focal neuro deficits. Psychiatric: Normal mood and affect. No overt signs of depression or anxiety noted. Limitations: no limitations Course Vital Signs 12/02/17 14:56 Temperature 98.1 F Pulse Rate 75 Respiratory 20 Rate Blood Pressure 173/77 O2 Sat by Pulse 100 Oximetry Medical Decision Making - Medical Decision Making This is a 27-year-old female who presents to the emergency department with chief complaint of right ear pain. Patient is very tearful, complaining of a lot of pain in the right ear. On physical examination, there is a small abrasion in the right external canal and TM is dull-appearing. Patient denies any fevers or chills, dental pain, sore throat, cough, abdominal pain, nausea or vomiting. She will be started on antibiotics as well as Claritin for acute otitis media. Patient is in no acute distress and will be discharged home at this time. She is in agreement with plan and voices understanding. All questions were answered. Disposition Clinical Impression: Otitis media Disposition: HOME SELF-CARE Condition: Good Instructions: Otitis Media (ED) Additional Instructions: Please take medications as prescribed. Please follow up with primary care provider within 1-2 days. Return to emergency department if symptoms should worsen or any concerns arise. Prescriptions: Amoxicillin 875 mg PO Q8HR #30 tablet Loratadine [Claritin] 10 mg PO DAILY #10 tab Is patient prescribed a controlled substance at d/c from ED?: No Referrals: Miguel Chung MD [Primary Care Provider] - 1-2 days Time of Disposition: 15:44
== END 2017-12-02 15:58 | disposition home or self-care (01) ==
LOC: EC 14:53
DX: S00.411A Abrasion of right ear, initial encounter (principal); H66.91 Otitis media, unspecified, right ear; R09.89 Other specified symptoms and signs involving the circulatory and respiratory systems; F17.200 Nicotine dependence, unspecified, uncomplicated; Z88.1 Allergy status to other antibiotic agents
CPT/HCPCS: 99283

== ENCOUNTER 2019-01-06 16:50 | Inpatient (IN) | payer BC, OTHER ==
[2019-01-06] MEDS ORDERED: MORPHINE SULFATE 4 MG/ML SYRINGE IVP STA (18:55)
[2019-01-06] MEDS ORDERED: KETOROLAC 30 MG/ML 1 ML VIAL IVP STA (19:27)
--- NOTE | 2019-01-06 19:27 | ED ---
Abdominal Pain HPI - General Source: patient Mode of arrival: ambulatory Limitations: no limitations <Katey Ba - Last Filed: 01/06/19 20:56> <Justin Salazar - Last Filed: 01/06/19 21:42> - General Chief Complaint: Abdominal Pain Stated Complaint: Pelvic and back pain Time Seen by Provider: 01/06/19 18:29 - History of Present Illness Initial Comments: 28-year-old female with history of previous tubal ligation, pyelonephritis presents today for chief complaint of lower pelvic pain with radiation to the right back. Patient states for the past 2 days she has had lower pelvic pressure and pain that began radiating to his right side of her back. Patient states she has had previous kidney infections however this does not feel very similar. Patient denies nausea, vomiting, diarrhea, fever, chills. Pt denies chest pain or SOB. Patient denies dysuria, urgency, frequency. Patient denies vaginal bleeding or . Remaining ROS (-). Upon arrival patient appears uncomfortable, VS reveal elevation of HR. BP stable. (Katey Ba) - Related Data Home Medications Medication Instructions Recorded Confirmed Phentermine HCl [Adipex-P] 37.5 mg PO DAILY 01/06/19 01/06/19 Allergies Allergy/AdvReac Type Severity Reaction Status Date / Time ciprofloxacin [From Cipro] AdvReac DIZZINESS Verified 01/06/19 21:00 Review of Systems ROS Other: All systems not noted in ROS Statement are negative. <Katey Ba - Last Filed: 01/06/19 20:56> ROS Other: All systems not noted in ROS Statement are negative. <Justin Salazar - Last Filed: 01/06/19 21:42> ROS Statement: Those systems with pertinent positive or pertinent negative responses have been documented in the HPI. Past Medical History Past Medical History: GERD/Reflux History of Any Multi-Drug Resistant Organisms: None Reported Past Surgical History: Section, Cholecystectomy, Orthopedic Surgery Additional Past Surgical History / Comment(s): arthroscopy knee Past Anesthesia/Blood Transfusion Reactions: No Reported Reaction Past Psychological History: No Psychological Hx Reported Smoking Status: Current every day smoker Past Alcohol Use History: Occasional Past Drug Use History: None Reported - Past Family History Mother Family Medical History: CVA/TIA Additional Family Medical History / Comment(s): in her 40's due to elevated BP <Katey Ba Clotilde - Last Filed: 01/06/19 20:56> General Exam Limitations: no limitations <Katey Ba Clotilde - Last Filed: 01/06/19 20:56> - General Exam Comments Initial Comments: General: The patient is awake and alert Eye: Pupils are equal, round and reactive to light, extra-ocular movements are intact. No nystagmus. There is normal conjunctiva bilaterally. No signs of icterus. Ears, nose, mouth and throat: There are moist mucous membranes and no oral lesions. Neck: The neck is supple, there is no tenderness or JVD. Cardiovascular: There is a regular rate and rhythm. No murmur, rub or gallop is appreciated. Respiratory: Lungs are clear to auscultation, respirations are non-labored, breath sounds are equal. No wheezes, stridor, rales, or rhonchi. Gastrointestinal: Soft, non-distended, lower pelvic region is diffusely tender to palpation abdomen without masses or organomegaly noted. There is no rebound or guarding present. No CVA tenderness. Bowel sounds are unremarkable. Pelvic: Normal female hair pattern. [place] well rugated vaginal mucosa no blood in vault. scant amount of discharge without odor. No cervical motion tenderness, mild b/l adnexal tenderness. Musculoskeletal: Normal ROM, no tenderness. Strength 5/5. Sensation intact. Pulses equal bilaterally 2+. Neurological: A&O x 3. CN II-XII intact, There are no obvious motor or sensory deficits. Coordination appears grossly intact. Speech is normal. Skin: Skin is warm and dry and no rashes or lesions are noted. Psychiatric: Cooperative, appropriate mood & affect, normal judgment. (Katey Ba) Course Vital Signs 01/06/19 01/06/19 17:32 21:00 Temperature 98.2 F 99.2 F Pulse Rate 105 H 70 Respiratory 20 16 Rate Blood Pressure 146/88 109/59 O2 Sat by Pulse 98 96 Oximetry Medical Decision Making - Lab Data Result diagrams: 01/06/19 19:30 01/06/19 19:30 <Katey Ba - Last Filed: 01/06/19 20:56> - Lab Data Result diagrams: 01/06/19 19:30 01/06/19 19:30 <Justin Salazar - Last Filed: 01/06/19 21:42> - Medical Decision Making 28-year-old female presenting for evaluation of lower pelvic pain it's been ongoing for the past 2 days. Patient states she has a history pyelonephritis, she states she usually has no urinary symptoms when she has these infections-any current urgency frequency or dysuria. Patient states 2 days ago she did have hematuria. Patient denies any fevers. Marked leukocytosis at 19. Aside from US remaining laboratory studies unremarkable. Upon pelvic exam patient did have bilateral tenderness. Pelvic US WAS OBTAINED REVEALING A EQUIVOCAL STUDY FOR RIGHT-SIDED OVARIAN TORSION. THIS FINDING WAS IMMEDIATELY DISCUSSED WITH MY ATTENDING PROVIDER. UA revealed findings more consistent with pyelonpehritis. Pt did have pain relief with toradol. Patient was evaluated by attenidng provider in person, Dr. Salazar who will continue care and consult OBGYN, and admit patient. (Katey Ba) 28-year-old female presenting with bilateral lower abdominal pain and lower back pain. Patient has previous history of pyelonephritis. She denies current urinary symptoms. Denies unilateral abdominal pain, states his bilateral lower abdominal pain. Denies vaginal discharge. Workup initiated in the emergency department, includes pelvic ultrasound which shows decreased flow to the right ovary, intermittent arterial flow. There is no mass, no cyst, normal sized ovary. I did discuss his case with Dr. Deshpande, covering for [employer]. Given this presentation, feels this is likely incidental finding as there is no ovarian mass and history and symptomatology is not consistent with torsion. Will follow-up as an outpatient. Patient states he has significantly elevated white count at 19.7. She has urina lysis consistent with severe infection, nitrate positive. Urine culture is pending. Patient is initiated on antibiotics awaiting culture results. She will be admitted for pyelonephritis. (Justin Salazar) - Lab Data Lab Results 01/06/19 01/06/19 01/06/19 Range/Units 19:30 19:30 19:30 WBC 19.7 H (3.8-10.6) k/uL RBC 4.74 (3.80-5.40) m/uL Hgb 14.2 (11.4-16.0) gm/dL Hct 41.2 (34.0-46.0) % MCV 87.0 (80.0-100.0) fL MCH 29.9 (25.0-35.0) pg MCHC 34.4 (31.0-37.0) g/dL RDW 13.5 (11.5-15.5) % Plt Count 298 (150-450) k/uL Neutrophils % (Manual) 70 % Band Neutrophils % 2 % Lymphocytes % (Manual) 26 % Monocytes % (Manual) 2 % Neutrophils # [employer] Neutrophils # (Manual) 14.10 H (1.3-7.7) k/uL Lymphocytes # (Manual) 5.12 H (1.0-4.8) k/uL Monocytes # (Manual) 0.39 (0-1.0) k/uL Nucleated RBCs 0 (0-0) /100 WBC Manual Slide Review Performed Sodium 139 (137-145) mmol/L Potassium 3.8 (3.5-5.1) mmol/L Chloride 107 (98-107) mmol/L Carbon Dioxide 23 (22-30) mmol/L Anion Gap 9 mmol/L BUN 6 L (7-17) mg/dL Creatinine 0.83 (0.52-1.04) mg/dL Est GFR (CKD-EPI)AfAm >90 (>60 ml/min/1.73 sqM) Est GFR (CKD-EPI)NonAf >90 (>60 ml/min/1.73 sqM) Glucose 76 (74-99) mg/dL Calcium 9.6 (8.4-10.2) mg/dL Total Bilirubin 0.4 (0.2-1.3) mg/dL AST 18 (14-36) U/L ALT 16 (9-52) U/L Alkaline Phosphatase 89 (38-126) U/L Total Protein 7.9 (6.3-8.2) g/dL Albumin 4.5 (3.5-5.0) g/dL Amylase 46 (30-110) U/L Lipase 17 L (23-300) U/L HCG, Quant <2.4 mIU/mL Urine Color Urine Appearance (Clear) Urine pH (5.0-8.0) Ur Specific [place] (1.001-1.035) Urine Protein (Negative) Urine Glucose (UA) (Negative) Urine Ketones (Negative) Urine Blood (Negative) Urine Nitrite (Negative) Urine Bilirubin (Negative) Urine Urobilinogen (<2.0) mg/dL Ur Leukocyte Esterase (Negative) Urine WBC (0-5) /hpf Urine WBC Clumps (None) /hpf Ur Squamous Epith Cells (0-4) /hpf Urine Mucus (None) /hpf Urine HCG, Qual Not Detected (Not Detectd) 01/06/19 Range/Units 19:30 WBC (3.8-10.6) k/uL RBC (3.80-5.40) m/uL Hgb (11.4-16.0) gm/dL Hct (34.0-46.0) % MCV (80.0-100.0) fL MCH (25.0-35.0) pg MCHC (31.0-37.0) g/dL RDW (11.5-15.5) % Plt Count (150-450) k/uL Neutrophils % (Manual) % Band Neutrophils % % Lymphocytes % (Manual) % Monocytes % (Manual) % Neutrophils # Neutrophils # (Manual) (1.3-7.7) k/uL Lymphocytes # (Manual) (1.0-4.8) k/uL Monocytes # (Manual) (0-1.0) k/uL Nucleated RBCs (0-0) /100 WBC Manual Slide Review Sodium (137-145) mmol/L Potassium (3.5-5.1) mmol/L Chloride (98-107) mmol/L Carbon Dioxide (22-30) mmol/L Anion Gap mmol/L BUN (7-17) mg/dL Creatinine (0.52-1.04) mg/dL Est GFR (CKD-EPI)AfAm (>60 ml/min/1.73 sqM) Est GFR (CKD-EPI)NonAf (>60 ml/min/1.73 sqM) Glucose (74-99) mg/dL Calcium (8.4-10.2) mg/dL Total Bilirubin (0.2-1.3) mg/dL AST (14-36) U/L ALT (9-52) U/L Alkaline Phosphatase (38-126) U/L Total Protein (6.3-8.2) g/dL Albumin (3.5-5.0) g/dL Amylase (30-110) U/L Lipase (23-300) U/L HCG, Quant mIU/mL Urine Color Yellow Urine Appearance Turbid H (Clear) Urine pH 6.0 (5.0-8.0) Ur Specific [place] 1.014 (1.001-1.035) Urine Protein 2+ H (Negative) Urine Glucose (UA) Negative (Negative) Urine Ketones Negative (Negative) Urine Blood Moderate H (Negative) Urine Nitrite Positive H (Negative) Urine Bilirubin Negative (Negative) Urine Urobilinogen <2.0 (<2.0) mg/dL Ur Leukocyte Esterase Large H (Negative) Urine WBC >182 H (0-5) /hpf Urine WBC Clumps Many H (None) /hpf Ur Squamous Epith Cells 2 (0-4) /hpf Urine Mucus Moderate H (None) /hpf Urine HCG, Qual (Not Detectd) Disposition <Katey Ba - Last Filed: 01/06/19 20:56> Is patient prescribed a controlled substance at d/c from ED?: No Decision to Admit Reason: Admit from EC Decision Date: 01/06/19 Decision Time: 21:41 <Justin Salazar - Last Filed: 01/06/19 21:42> Clinical Impression: Pyelonephritis Disposition: ADMITTED IP TO THIS HOSP Condition: Stable Referrals: Miguel Chung MD [Primary Care Provider] - 1-2 days
[2019-01-06 20:02] LABS: HCT 41.2 % (34.0-46.0); HGB 14.2 gm/dL (11.4-16.0); MCH 29.9 pg (25.0-35.0); MCHC 34.4 g/dL (31.0-37.0); Mean Platelet Volume 8.1; Platelet Count 298 k/uL (150-450); RBC 4.74 m/uL (3.80-5.40); RDW 13.5 % (11.5-15.5); WBC 19.7 k/uL (3.8-10.6)
--- NOTE | 2019-01-06 20:05 | CT ---
EXAMINATION TYPE: CT abdomen pelvis w con DATE OF EXAM: 01/06/2019 COMPARISON: None HISTORY: RLQ pain CT DLP: 989.6 mGycm Automated exposure control for dose reduction was used. TECHNIQUE: Helical acquisition of images was performed from the lung bases through the pelvis. CONTRAST: Performed without Oral Contrast and with IV Contrast, patient injected with 100 mL of Isovue 300. FINDINGS: There is mild subsegmental atelectasis at the lung bases. Heart size is normal. There is no pericardi al effusion. There is no pleural effusion. Liver spleen stomach pancreas appear normal. Bile ducts are not dilated. There are clips from cholecy stectomy. There is no adrenal mass. Kidneys have normal size and contour. There is right-sided hydronephrosis a nd hydroureter. There is right-sided perinephric edema. There is periureteral edema. I see no uretera l calculus. Bladder distends smoothly. There is 2 cm cyst on the left ovary. Uterus is anteverted. Th ere is tiny amount of free fluid in the pelvis. There are clips from tubal ligation. There is no mesenteric edema. There are multiple enlarged small bowel mesenteric lymph nodes that lucero sure up to 1 cm. There is no sign of a bowel obstruction. There is lower abdominal ventral hernia that contains fat and measures 5 x 2 cm. There is no sign of free air. There is no ascites. There is no sign of thickened appendix. Lumbar vertebra have normal sp acing and alignment. Posterior elements are intact. Bony pelvis is intact. IMPRESSION: THERE IS RIGHT-SIDED HYDRONEPHROSIS AND HYDROURETER. NO STONE SEEN. THIS COULD RELATE TO NONOPAQUE ST ONE OR RECENTLY PASSED STONE. NO RENAL ATROPHY. THIS IS CONSISTENT WITH ACUTE OBSTRUCTION. LEFT OVARIAN CYST. MINIMAL FREE FLUID. MILD MESENTERIC ADENOPATHY.
[2019-01-06 20:09] LABS: ALT 16 U/L (9-52); AST 18 U/L (14-36); African American GFR (CKD) >90 (>60 ml/min/1.73 sqM); Albumin 4.5 g/dL (3.5-5.0); Alkaline Phosphatase 89 U/L (38-126); Amylase 46 U/L (30-110); Anion Gap 9 mmol/L; Blood Urea Nitrogen 6 mg/dL (7-17); Calcium 9.6 mg/dL (8.4-10.2); Carbon Dioxide 23 mmol/L (22-30); Chloride 107 mmol/L (98-107); Glucose 76 mg/dL (74-99); Lipase 17 U/L (23-300); Potassium 3.8 mmol/L (3.5-5.1); Sodium 139 mmol/L (137-145); Total Bilirubin 0.4 mg/dL (0.2-1.3); Total Protein 7.9 g/dL (6.3-8.2)
[2019-01-06 20:12] LABS: Appearance,Urine Turbid (Clear); Bilirubin,Urine Negative (Negative); Blood,Urine Moderate (Negative); Color,Urine Yellow; Glucose,Urine (UA) Negative (Negative); Ketones,Urine Negative (Negative); Leukocyte Esterase,Urine Large (Negative); Mucus,Urine Moderate /hpf; Nitrite,Urine Positive (Negative); Protein,Urine 2+ (Negative); Specific Gravity,Urine 1.014 (1.001-1.035); Squamous Epithelial Cell,Urine 2 /hpf (0-4); Urobilinogen,Urine <2.0 mg/dL (<2.0); WBC,Urine >182 /hpf (0-5)
[2019-01-06 20:26] LABS: HCG,Quantitative Serum <2.4 mIU/mL
[2019-01-06] MEDS ORDERED: cefTRIAXone IN SWFI 1,000 MG/10 ML SYRINGE IVP STA (20:28)
--- NOTE | 2019-01-06 20:36 | US ---
EXAMINATION TYPE: US transvaginal DATE OF EXAM: 01/06/2019 COMPARISON: NONE CLINICAL HISTORY: Pain. Patient in severe pain, worse on right. TECHNIQUE: Transvaginal (TV). Date of LMP: 12/21/18 EXAM MEASUREMENTS: Uterus: 9.5 x 4.8 x 5.3 cm Endometrial Stripe: 1.0 cm Right Ovary: 2.6 x 2.3 x 1.7 cm Left Ovary: 3.1 x 2.6 x 2.5 cm Technically difficult due to patients immense pain level. 1. Uterus: Anteverted wnl 2. Endometrium: wnl 3. Right Ovary: Color doppler and pulsed doppler showed no flow through most of exam. However, flow was seen during exam. Before pulsed wave was taken and after pulsed wave was taken flow was not seen. ?Ovary be torsed and briefly untorse during exam?? 4. Left Ovary: wnl Spectral, color and waveform doppler imaging shows good arterial and venous flow within the LEFT ov andreina there is no evidence for ovarian torsion on left. 5. Bilateral Adnexa: wnl 6. Posterior cul-de-sac: wnl Can't rule out torsion of right ovary. IMPRESSION: We could not demonstrate consistent arterial waveform in the right ovarian artery and this is equivoc al for torsion. There are definitely decreased waveforms in the right ovary and artery compared to th e left.
[2019-01-06 21:03] LABS: Band Neutrophils % 2 %; Lymphocytes # (M) 5.12 k/uL (1.0-4.8); Monocytes # (M) 0.39 k/uL (0-1.0); Neutrophils % (M) 70 %; Nucleated Red Blood Cells 0 /100 WBC (0-0); Total Cells Counted 100
[2019-01-06] MEDS ORDERED: IBUPROFEN 400 MG TAB PO PRN (21:37)
[2019-01-06] MEDS ORDERED: NALOXONE 0.4 MG/ML 1 ML VIAL IV PRN (21:37)
[2019-01-06] MEDS ORDERED: ONDANSETRON 4 MG/2 ML VIAL IVP PRN (21:37)
[2019-01-06] MEDS ORDERED: ACETAMINOPHEN TAB 325 MG TAB PO PRN (21:37)
[2019-01-06] MEDS ORDERED: MORPHINE SULFATE 4 MG/ML SYRINGE IV PRN (21:37)
[2019-01-06 22:53] VITALS: BMI 34.1
[2019-01-06] MEDS: SODIUM CHLORIDE 0.9% 1,000 ML IV SCH (22:56)
[2019-01-07] MEDS: SODIUM CHLORIDE 0.9% 1,000 ML IV SCH (07:14)
[2019-01-07] MEDS ORDERED: metroNIDAZOLE 500 MG TAB PO ONE (08:00)
[2019-01-07 08:13] LABS: ALT 72 U/L (9-52); AST 66 U/L (14-36); African American GFR (CKD) >90 (>60 ml/min/1.73 sqM); Albumin 3.6 g/dL (3.5-5.0); Alkaline Phosphatase 87 U/L (38-126); Anion Gap 5 mmol/L; Blood Urea Nitrogen 10 mg/dL (7-17); Calcium 8.7 mg/dL (8.4-10.2); Carbon Dioxide 23 mmol/L (22-30); Chloride 111 mmol/L (98-107); Glucose 104 mg/dL (74-99); HCT 37.2 % (34.0-46.0); HGB 12.2 gm/dL (11.4-16.0); MCH 28.9 pg (25.0-35.0); MCHC 32.9 g/dL (31.0-37.0); MCV 87.8 fL (80.0-100.0); Mean Platelet Volume 8.1; Platelet Count 256 k/uL (150-450); Potassium 4.1 mmol/L (3.5-5.1); RBC 4.24 m/uL (3.80-5.40); RDW 14.3 % (11.5-15.5); Sodium 139 mmol/L (137-145); Total Bilirubin 0.3 mg/dL (0.2-1.3); Total Protein 6.4 g/dL (6.3-8.2); WBC 9.2 k/uL (3.8-10.6)
[2019-01-07 09:14] VITALS: RESP 18
[2019-01-07 09:56] LABS: Eosinophils # (M) 0.09 k/uL (0-0.7); Lymphocytes # (M) 1.56 k/uL (1.0-4.8); Monocytes # (M) 0.74 k/uL (0-1.0); Neutrophils # (M) 6.81 k/uL (1.3-7.7); Neutrophils % (M) 74 %; Nucleated Red Blood Cells 0 /100 WBC (0-0); Total Cells Counted 100
[2019-01-07] MEDS ORDERED: ENOXAPARIN 40 MG/0.4 ML SYRINGE SQ SCH (12:15)
[2019-01-07] MEDS ORDERED: Phentermine Hcl [Adipex-P] PO SCH (12:15)
--- NOTE | 2019-01-07 14:55 | P.GSCN ---
History of Present Illness Consult date: 01/07/19 Reason for Consult: Right hydronephrosis Requesting physician: Ector Casillas History of present illness: The patient is a 28-year-old white female with no prior history of urolithiasis. She has been treated for infrequent UTIs in the past. She began to experience right-sided back pain radiating to the abdomen on 01/04/2019. She had a single episode of hematuria on January 04, but no other associated symptoms. Her pain worsened yesterday and she thus presented to the emergency room. A CT scan showed evidence of right hydronephrosis, but no calculi were seen. Urinalysis was consistent with a UTI, and she was found to have leukocytosis. She was subsequently admitted and is now asymptomatic. Review of Systems - Constitutional Denies chills, Denies fever - Gastrointestinal Denies nausea, Denies vomiting - Genitourinary Genitourinary: Reports flank pain, Reports hematuria, Denies dysuria Past Medical History Past Medical History: GERD/Reflux Additional Past Medical History / Comment(s): ovarian cysts History of Any Multi-Drug Resistant Organisms: None Reported Past Surgical History: Section, Cholecystectomy, Orthopedic Surgery, Tubal Ligation Additional Past Surgical History / Comment(s): arthroscopy knee Past Anesthesia/Blood Transfusion Reactions: No Reported Reaction Past Psychological History: No Psychological Hx Reported Smoking Status: Current every day smoker Past Alcohol Use History: Rare Additional Past Alcohol Use History / Comment(s): 1/2ppd since teens Past Drug Use History: None Reported - Past Family History Mother Family Medical History: CVA/TIA, Hypertension Additional Family Medical History / Comment(s): in her 40's due to elevated BP Medications and Allergies Home Medications Medication Instructions Recorded Confirmed Type Phentermine HCl [Adipex-P] 37.5 mg PO DAILY 01/06/19 01/06/19 History Allergies Allergy/AdvReac Type Severity Reaction Status Date / Time ciprofloxacin [From Cipro] AdvReac DIZZINESS Verified 01/06/19 22:54 Surgical - Exam Vital Signs Temp Pulse Resp BP Pulse Ox 98.2 F 105 H 20 146/88 98 01/06/19 17:32 01/06/19 17:32 01/06/19 17:32 01/06/19 17:32 01/06/19 17:32 - General well developed, well nourished, no distress - Respiratory normal respiratory effort - Abdomen Abdomen: soft, non tender, no guarding, no rigid, no rebound - Psychiatric oriented to time, oriented to person, oriented to place, speech is normal, memory intact Results - Labs 01/07/19 07:42 01/07/19 07:42 Abnormal Lab Results - Last 24 Hours (Table) 01/06/19 01/06/19 01/06/19 Range/Units 19:30 19:30 19:30 WBC 19.7 H (3.8-10.6) k/uL Neutrophils # (Manual) 14.10 H (1.3-7.7) k/uL Lymphocytes # (Manual) 5.12 H (1.0-4.8) k/uL Chloride (98-107) mmol/L BUN 6 L (7-17) mg/dL Glucose (74-99) mg/dL AST (14-36) U/L ALT (9-52) U/L Lipase 17 L (23-300) U/L Urine Appearance Turbid H (Clear) Urine Protein 2+ H (Negative) Urine Blood Moderate H (Negative) Urine Nitrite Positive H (Negative) Ur Leukocyte Esterase Large H (Negative) Urine WBC >182 H (0-5) /hpf Urine WBC Clumps Many H (None) /hpf Urine Mucus Moderate H (None) /hpf Trichomonas Ag (Rapid) (Negative) 01/06/19 01/07/19 Range/Units 22:25 07:42 WBC (3.8-10.6) k/uL Neutrophils # (Manual) (1.3-7.7) k/uL Lymphocytes # (Manual) (1.0-4.8) k/uL Chloride 111 H (98-107) mmol/L BUN (7-17) mg/dL Glucose 104 H (74-99) mg/dL AST 66 H (14-36) U/L ALT 72 H (9-52) U/L Lipase (23-300) U/L Urine Appearance (Clear) Urine Protein (Negative) Urine Blood (Negative) Urine Nitrite (Negative) Ur Leukocyte Esterase (Negative) Urine WBC (0-5) /hpf Urine WBC Clumps (None) /hpf Urine Mucus (None) /hpf Trichomonas Ag (Rapid) Positive H (Negative) Microbiology - Last 24 Hours (Table) 01/06/19 19:30 Urine Culture - Preliminary Urine,Voided 01/06/19 22:25 Genital Culture - Preliminary Cervix Diabetes panel 01/06/19 01/07/19 Range/Units 19:30 07:42 Sodium 139 139 (137-145) mmol/L Potassium 3.8 4.1 (3.5-5.1) mmol/L Chloride 107 111 H (98-107) mmol/L Carbon Dioxide 23 23 (22-30) mmol/L BUN 6 L 10 (7-17) mg/dL Creatinine 0.83 0.76 (0.52-1.04) mg/dL Glucose 76 104 H (74-99) mg/dL Calcium 9.6 8.7 (8.4-10.2) mg/dL AST 18 66 H (14-36) U/L ALT 16 72 H (9-52) U/L Alkaline Phosphatase 89 87 (38-126) U/L Total Protein 7.9 6.4 (6.3-8.2) g/dL Albumin 4.5 3.6 (3.5-5.0) g/dL Calcium panel 01/06/19 01/07/19 Range/Units 19:30 07:42 Calcium 9.6 8.7 (8.4-10.2) mg/dL Albumin 4.5 3.6 (3.5-5.0) g/dL Pituitary panel 01/06/19 01/07/19 Range/Units 19:30 07:42 Sodium 139 139 (137-145) mmol/L Potassium 3.8 4.1 (3.5-5.1) mmol/L Chloride 107 111 H (98-107) mmol/L Carbon Dioxide 23 23 (22-30) mmol/L BUN 6 L 10 (7-17) mg/dL Creatinine 0.83 0.76 (0.52-1.04) mg/dL Glucose 76 104 H (74-99) mg/dL Calcium 9.6 8.7 (8.4-10.2) mg/dL Adrenal panel 01/06/19 01/07/19 Range/Units 19:30 07:42 Sodium 139 139 (137-145) mmol/L Potassium 3.8 4.1 (3.5-5.1) mmol/L Chloride 107 111 H (98-107) mmol/L Carbon Dioxide 23 23 (22-30) mmol/L BUN 6 L 10 (7-17) mg/dL Creatinine 0.83 0.76 (0.52-1.04) mg/dL Glucose 76 104 H (74-99) mg/dL Calcium 9.6 8.7 (8.4-10.2) mg/dL Total Bilirubin 0.4 0.3 (0.2-1.3) mg/dL AST 18 66 H (14-36) U/L ALT 16 72 H (9-52) U/L Alkaline Phosphatase 89 87 (38-126) U/L Total Protein 7.9 6.4 (6.3-8.2) g/dL Albumin 4.5 3.6 (3.5-5.0) g/dL - Imaging CT scan - abdomen: report reviewed, image reviewed Assessment and Plan (1) Hydronephrosis Current Visit: Yes Status: Acute Code(s): N13.30 - UNSPECIFIED HYDRONEPHROSIS SNOMED Code(s): 22553371 (2) UTI (urinary tract infection) Current Visit: Yes Status: Acute Code(s): N39.0 - URINARY TRACT INFECTION, SITE NOT SPECIFIED SNOMED Code(s): 92961605 Plan: I had a lengthy discussion with the patient and her fianc. I explained that her symptoms, along with the finding of right hydroureteronephrosis on CT scan, are suggestive of renal colic due to a distal ureteral calculus. A calculus is not seen on CT scan, so it is likely she passed it. However, I made clear to her that a CT scan tia-kaew-cmd false-negative results, and that she could be as ymptomatic despite a persistent ureteral calculus. I also discussed the fact that ongoing ureteral obstruction may result in loss of renal function, even in the absence of symptoms. I feel it is reasonable for her to be discharged home on broad-spectrum oral antibiotics, as the urine culture is pending. She was advised to follow-up with me in 1-2 weeks. If the UTI clears and she remains asymptomatic, a renal ultrasound will be obtained in 1 month to confirm resolution of hydronephrosis. Conversely, if her symptoms recur, she may require further evaluation. Please notify me if I can be of any further assistance. Time with Patient: Greater than 30
[2019-01-07 16:31] VITALS: BP 107/62; PULSE 60; TEMP 98
--- NOTE | 2019-01-07 23:08 | HP ---
HISTORY AND PHYSICAL HISTORY AND PHYSICAL EXAMINATION/DISCHARGE SUMMARY: DATE OF ADMISSION: January 06, 2019. DATE OF SERVICE: 01/07/2019 DATE OF DISCHARGE: 01/07/2019. PRESENTING COMPLAINT: Right flank pain. HISTORY OF PRESENTING COMPLAINT: This is a very pleasant 28-year-old patient of Dr. Chung. Rather in good health. On Wednesday, started having cramping in the lower abdomen and then got a bit better and then again, she had further episodes that was much worse on and symptoms got much worse on Wednesday that is yesterday. Patient also developed pain in the right flank and posteriorly. There was no nausea, vomiting, fever. Patient developed dark-colored urine. The patient presented in the ER. Patient had a white count and CT scan of the abdomen and pelvis showed right-sided hydronephrosis and hydroureter. The patient was started on IV ceftriaxone. When I saw the patient this afternoon, patient's symptoms completely resolved. Overall feeling much better, tolerating a diet. REVIEW OF SYSTEMS: CONSTITUTIONAL: Tired. HEENT: None. RESPIRATORY: None. CARDIOVASCULAR: None. GASTROINTESTINAL: None. GENITOURINARY: None. MUSCULOSKELETAL none. DERMATOLOGICAL, HEMATOLOGIC, LYMPHATIC: none. PSYCHIATRY none. NEUROLOGICAL none. PAST MEDICAL HISTORY: GERD, ovarian cyst. PAST SURGICAL HISTORY: , cholecystectomy, tubal ligation, arthroscopy of knee. SOCIAL HISTORY: Smokes a half a pack a day. Alcohol rarely. Lives with her fiancee. 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 FAMILY HISTORY: Stroke and hypertension. HOME MEDICATIONS: Adipex P 37.5 p.o. daily. ALLERGIES: CIPRO. PHYSICAL EXAMINATION: VITAL SIGNS: Vital signs on presentation: Temperature 98.2, pulse 105, respirations 20, blood pressure 146/88, pulse ox 98% on room air. GENERAL APPEARANCE: Well built, BMI 34.1, sitting up, comfortable. EYES: Pupils equal. Conjunctivae normal. HEENT: External appearance of nose and ears normal. Oral cavity normal. NECK: JVD not raised. Mass not palpable. RESPIRATORY: Effort normal. LUNGS are clear. CARDIOVASCULAR: First and second sounds normal. No edema. ABDOMEN: Soft, nontender. Liver and spleen not palpable. LYMPHATICS: No lymph nodes palpable in the neck and axilla. PSYCHIATRY: Alert and oriented x3. Mood and affect normal. NEUROLOGICAL: Pupils equal. Cranial nerves intact. Power and sensation grossly intact. INVESTIGATIONS: White count 19.7, hemoglobin 14.2, potassium 3.8. BUN and creatinine is normal. Urine positive for nitrite, leukocyte esterase, WBC. CT scan of the abdomen and pelvis shows right-sided hydronephrosis and hydroureter. ASSESSMENT: 1. Acute right-sided pyelonephritis with hydronephrosis and hydroureter, probably from right-sided ureteral stone that really did not show up on the CT scan. Has been on IV fluids and antibiotics as clinically responding. 2. Chronic nicotine dependence, patient is a cigarette smoker. 3. Gastroesophageal reflux disease. 4. Obesity, BMI 34.1. PLAN: Did get IV fluids overnight. Doing much better. Did get IV ceftriaxone. The patient was seen by Dr. Kirby. He has also okayed the patient to be discharged. DISPOSITION: Discharge home. HOME MEDICATIONS: Ceftin 500 mg b.i.d. for 7 days. FOLLOWUP: Follow up with Dr. Chung in 1 week. Follow up with Dr. Mazariegos in 2 weeks. This is both a history physical and discharge summary on this patient. Copy to Dr. Chung. MMODL / IJN: [id number] /
--- NOTE | 2019-01-08 07:24 | DS ---
DISCHARGE SUMMARY DATE OF ADMISSION: January 06, 2019. DATE OF DISCHARGE: January 07, 2019. Please refer to my H and P from yesterday. This is both a history physical and discharge summary on this patient. Copy to Dr. Chung. MMODL / IJN: [id number] /
[2019-01-08 15:47] LABS: C. trachomatis,PCR Negative (Neg,Equiv); Chlamydia trachomatis Source Vagina
[2019-01-08 15:48] LABS: N. gonorrhoeae,PCR Negative (Neg,Equiv); Neisseria Source Vagina
== END 2019-01-07 17:46 | disposition home or self-care (01) | DRG 690 ==
LOC: EC 16:50 → 6PED 21:38 → OBSVTOIN 01-07 14:38
PROVIDERS: ADMIT Hospitalist; ATTEND Hospitalist
DX: N13.6 Pyonephrosis (principal); E66.9 Obesity, unspecified; K21.9 Gastro-esophageal reflux disease without esophagitis; F17.210 Nicotine dependence, cigarettes, uncomplicated; Z98.51 Tubal ligation status; Z88.1 Allergy status to other antibiotic agents; Z98.891 History of uterine scar from previous surgery; Z90.49 Acquired absence of other specified parts of digestive tract; Z82.3 Family history of stroke; Z68.34 Body mass index [BMI] 34.0-34.9, adult; Z82.49 Family history of ischemic heart disease and other diseases of the circulatory system; Z87.440 Personal history of urinary (tract) infections
CPT/HCPCS: 36415; 74177; 76830; 80053; 81001; 81025; 82150; 83690; 84702; 85025; 87070; 87077; 87086; 87186; 87205; 87491; 87591; 87808; 93975; 96374; 96375; 99285

== ENCOUNTER → 2019-06-24 | Outpatient (CLI) | payer BC, OTHER ==
--- NOTE | 2019-06-25 20:24 | CT ---
EXAMINATION TYPE: CT abdomen wo/w con DATE OF EXAM: 06/24/2019 COMPARISON: 01/06/2019 HISTORY: 29-year-old female Hemangioma of liver. Follow up from US. TECHNIQUE: Contiguous axial scanning of the abdomen before and after administration of 100 ml Isovue 300 IV contrast. Delayed images through the kidneys and coronal/sagittal reconstructions performed. CT DLP: 1502 mGycm Automated exposure control for dose reduction was used. FINDINGS: Heart normal size without pericardial effusion. Dependent atelectasis in the visualized lung bases wi thout pleural effusion. Prominent pericardial recess along the right inferior pulmonary vein. Liver mildly enlarged to 18.5 cm. Density between the liver and spleen on portal venous phase is rela tively similar arguing against any significant fatty infiltration. No biliary ductal dilatation. Port al venous system is patent. Cholecystectomy clips. Adrenal glands, kidneys, spleen, and pancreas appear within normal limits. The previous right-sided h ydronephrosis has resolved. Numerous scattered prominent mesenteric lymph nodes measuring up to 5 mm. Overall decreased in size f rom 01/06/2019 suggesting a reactive/post inflammatory etiology. Partially visualized normal appendix. Moderate stool in the right side of the colon. Partially visualized fat-containing ventral abdominal wall hernia measuring approximately 4.5 cm wide along the infraumbilical region. The pelvis is not imaged. Bones: No osseous destructive process. IMPRESSION: 1. NO DISCRETE HEPATIC HEMANGIOMA IS IDENTIFIED ON MULTIPHASIC LIVER CT. IF THIS WAS A FINDING SEEN O N AND ULTRASOUND STUDY, CONSIDER A THREE-MONTH PRECAUTIONARY FOLLOW-UP ULTRASOUND TO REASSESS. 2. MILD HEPATOMEGALY (18.5 CM). 3. NUMEROUS SCATTERED PROMINENT MESENTERIC LYMPH NODES MEASURING UP TO 5 MM ARE OVERALL DECREASED IN SIZE FROM 01/06/2019 SUGGESTING A REACTIVE/POST INFLAMMATORY ETIOLOGY. 4. PARTIALLY VISUALIZED VENTRAL ABDOMINAL WALL FAT-CONTAINING HERNIA ALONG THE INFRA UMBILICAL REGION , FULLY VISUALIZED ON THE 01/06/2019 EXAM. 5. INTERVAL RESOLUTION OF THE PREVIOUSLY SEEN RIGHT-SIDED HYDRONEPHROSIS.
== END | disposition home or self-care (01) ==
LOC: RADCTMAIN 09:13
PROVIDERS: ATTEND Family Medicine
DX: K43.9 Ventral hernia without obstruction or gangrene (principal); N13.39 Other hydronephrosis; R16.0 Hepatomegaly, not elsewhere classified; D18.03 Hemangioma of intra-abdominal structures
CPT/HCPCS: 74170; Q9967 ×2

== ENCOUNTER → 2021-06-06 | Outpatient (CLI) | payer BC, OTHER ==
[2021-06-07 00:13] LABS: Basophils # (A) 0.07 X 10*3/uL (0.00-0.10); Basophils % (A) 0.5 %; Eosinophils # (A) 0.21 X 10*3/uL (0.04-0.35); Eosinophils % (A) 1.6 %; HCT 39.3 % (37.2-46.3); HGB 12.4 g/dL (12.0-15.0); Lymphocytes # (A) 3.93 X 10*3/uL (0.90-5.00); Lymphocytes % (A) 29.9 %; MCH 27.7 pg (27.0-32.0); MCHC 31.6 g/dL (32.0-37.0); MCV 87.7 fL (80.0-97.0); Mean Platelet Volume 11.6 fL (9.5-12.2); Monocytes # (A) 0.71 X 10*3/uL (0.20-1.00); Monocytes % (A) 5.4 %; Neutrophils # (A) 8.16 X 10*3/uL (1.80-7.70); Neutrophils % (A) 62.1 %; Platelet Count 340 X 10*3/uL (140-440); RBC 4.48 X 10*6/uL (4.10-5.20); RDW 14.9 % (11.5-14.5); WBC 13.15 X 10*3/uL (4.50-10.00)
== END | disposition home or self-care (01) ==
LOC: LABWHC1 13:48
PROVIDERS: ATTEND Obstetrics & Gynecology
DX: Z01.812 Encounter for preprocedural laboratory examination (principal)
CPT/HCPCS: 36415; 85025

== ENCOUNTER → 2021-06-09 | Day surgery (SDC) | payer BC, OTHER ==
[2021-06-04 13:26] VITALS: BMI 39.3
--- NOTE | 2021-06-05 13:48 | HP ---
HISTORY AND PHYSICAL DATE OF SURGERY: 06/09/2021 This is a 31-year-old female, 3, para 2-0-1-2, who presents with a history of tubal ligation and heavy seven-day menses, with clot passage. She is requesting NovaSure endometrial ablation. Office endometrial sampling has been done and is within normal limits. All risks, benefits and alternatives have been discussed in detail. PAST MEDICAL HISTORY: Significant for dysmenorrhea, hyperhidrosis, kidney stones, ovarian cysts, rhinitis, sinusitis, HSV and cholelithiasis, as well as eustachian tube dysfunction. PAST SURGICAL HISTORY: section 2011, cholecystectomy 2011, right knee arthroscopy and tubal ligation. CURRENT MEDICATIONS: Crestor 5 mg daily, vitamin daily. ALLERGIES: CIPROFLOXACIN, to which she reports dizziness. FAMILY HISTORY: Significant for cardiac disease, hypertension, CVA. OBSTETRIC HISTORY: Significant for section x2 and miscarriage not requiring D and C. SOCIAL HISTORY: Patient is a former tobacco smoker, one-half pack per day. She is single. 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 She denies alcohol or drug use. PHYSICAL EXAMINATION: Patient is 5 feet 1-1/2 inches, 213 pounds, BMI 40, blood pressure 122/76, pulse 68. Patient is afebrile. HEENT examination is negative. No thyromegaly. No cervical lymphadenopathy. CHEST: Clear to auscultation in all hicks anteriorly and posteriorly. Cardiac exam reveals a regular rate and rhythm with no murmur, click or rub. Abdomen is moderately obese. No organosplenomegaly, no masses, active bowel sounds. No CVA tenderness. Extremities reveal no edema, good range of motion, good peripheral pulses. Breasts are bilaterally symmetric to inspection with no skin dimpling, nipple discharge or adenopathy noted. Cervix is small and multiparous. Pap smear is up to date and normal. Uterus is nontender, mobile, smooth, mid position. Adnexa negative bilaterally. Rectal exam reveals normal sphincter tone. No hemorrhoids, no masses. Lymphatic exam is negative. Skin exam reveals no rashes or lesions, no areas of discoloration. NEUROLOGIC EXAM: Patient is showing good insight and judgment, normal mood and affect. She is grossly oriented x3. IMPRESSION: Longstanding dysmenorrhea and menorrhagia, requesting NovaSure endometrial ablation. Previous tubal ligation noted. PLAN: We will proceed with hysteroscopy, NovaSure endometrial ablation. Risks, benefits and alternatives have all been discussed. The pamphlets and information have been given to the patient and she has reviewed them thoroughly. I believe she understands our discussion with no reservation. MMODL / IJN: [id number] /
[~2021-06-09] MED LIST: DEXAMETHASONE SOD PHOSPHATE 4 MG/ML 1 ML VIAL IV ONE; HYDROmorphone 0.5 MG/0.5 ML SYRINGE IVP PRN; LACTATED RINGERS 1,000 ML IV SCH; ONDANSETRON 4 MG/2 ML VIAL IVP ONE; Pre Op ABX Message 1 EACH MISC MISCELLANE ONE
== END ==
LOC: OR 09:33
PROVIDERS: ATTEND Obstetrics & Gynecology
DX: Z53.9 Procedure and treatment not carried out, unspecified reason (principal); N92.0 Excessive and frequent menstruation with regular cycle; N94.6 Dysmenorrhea, unspecified; Z79.899 Other long term (current) drug therapy; Z82.49 Family history of ischemic heart disease and other diseases of the circulatory system; Z87.442 Personal history of urinary calculi; Z87.891 Personal history of nicotine dependence; Z88.1 Allergy status to other antibiotic agents; Z90.49 Acquired absence of other specified parts of digestive tract; Z98.51 Tubal ligation status

== ENCOUNTER 2021-06-23 08:35 | Day surgery (SDC) | payer BC, OTHER ==
[2021-06-19 14:50] VITALS: BMI 39.3
[~2021-06-23 08:35] MED LIST changes: -DEXAMETHASONE SOD PHOSPHATE 4 MG/ML 1 ML VIAL IV ONE; -HYDROmorphone 0.5 MG/0.5 ML SYRINGE IVP PRN; -ONDANSETRON 4 MG/2 ML VIAL IVP ONE
[2021-06-23] MEDS ORDERED: ONDANSETRON 4 MG/2 ML VIAL ONE (09:50)
[2021-06-23] MEDS ORDERED: DEXAMETHASONE SOD PHOSPHATE 4 MG/ML 1 ML VIAL IVP ONE (09:53)
[2021-06-23] MEDS ORDERED: ONDANSETRON 4 MG/2 ML VIAL IVP ONE (09:53)
[2021-06-23] MEDS ORDERED: fentaNYL (PF) 50 MCG/ML 2 ML AMP ONE (10:58)
[2021-06-23] MEDS ORDERED: KETOROLAC 15 MG/ML 1 ML VIAL ONE (10:58)
[2021-06-23] MEDS ORDERED: LIDOCAINE 1% INJ 10MG/ML (20 ML MDV) ONE (10:58)
[2021-06-23] MEDS ORDERED: PROPOFOL 10 MG/ML 20 ML VIAL IV ONE (10:58)
[2021-06-23] MEDS ORDERED: MIDAZOLAM 2 MG/2 ML VIAL ONE (10:58)
--- NOTE | 2021-06-23 11:24 | P.OP ---
Date of Procedure: 06/23/21 Preoperative Diagnosis: Menorrhagia, dysmenorrhea Postoperative Diagnosis: Same Procedure(s) Performed: Hysteroscopy, Dhara endometrial ablation Anesthesia: APOLONIAA Surgeon: Marva Sargent Estimated Blood Loss (ml): 5 IV fluids (ml): 500 Urine output (ml): 300 Pathology: none sent Condition: stable Disposition: PACU Operative Findings: Essentially negative-appearing endometrial cavity Description of Procedure: Patient is brought to the operating suite where a general anesthetic is administered without difficulty. She's placed in the dorsal lithotomy position. The cervix, vagina, perineal bodies are all prepped and draped in usual sterile fashion. The appropriate timeout is performed to assure proper patient and procedural identification. Antibiotics are not deemed necessary. Urine hCG is negative. Examination under anesthesia reveals an anteverted uterus, negative adnexa bilaterally. Bladder is drained for approximately 300 mL of clear yellow urine. Anterior lip of the cervix is grasped with a double-tooth tenaculum after the weighted speculum was placed into the vagina. Uterus sounds to a depth of 12 cm in the anteverted position. Cervix is gently and systematically dilated using Hanks dilators. Hysteroscope was then introduced and the cavity is distended with sterile saline. Inspection of the cavity reveals essentially negative findings, no polyps fibroids or defects. Hysteroscope was removed. The Dhara instrument is then placed to the dome of the fundus after the cervical length is noted to be 4 cm. The wand is opened as the cavity is assessed by the instrument. The appropriate preoperative checks are performed. Then for 120 seconds the procedure is carried out. The wand is removed after the cervical balloon is deflated. Hysteroscope then is once again placed and the cavity appears to be uniformly blanched. Cervix is dry upon completion of procedure. All sponge needle and enhancement counts are correct. Patient is brought back to recovery room in very good condition with stable vital signs including a pulse of 84, blood pressure 122/60. Toradol is given prior to leaving the operative suite. She will follow-up with me in the office in 2 weeks.
[2021-06-23 11:28] VITALS: TEMP 97
[2021-06-23 12:35] VITALS: BP 123/64; PULSE 67; RESP 18
== END 2021-06-23 13:00 | disposition home or self-care (01) ==
LOC: OR 08:35
PROVIDERS: ATTEND Obstetrics & Gynecology
DX: N92.0 Excessive and frequent menstruation with regular cycle (principal); N94.6 Dysmenorrhea, unspecified; B00.9 Herpesviral infection, unspecified; K21.9 Gastro-esophageal reflux disease without esophagitis; E78.5 Hyperlipidemia, unspecified; N83.209 Unspecified ovarian cyst, unspecified side; Z87.442 Personal history of urinary calculi; Z79.899 Other long term (current) drug therapy; Z87.891 Personal history of nicotine dependence
CPT/HCPCS: 81025; 58563; J2250; J1100; J2405; J2001; J3010; J1885; J2704

== ENCOUNTER → 2023-02-26 | Outpatient (CLI) | payer BC, OTHER ==
--- NOTE | 2023-02-26 13:30 | MR ---
EXAMINATION TYPE: MR lumbar spine wo con DATE OF EXAM: 02/26/2023 COMPARISON: None HISTORY: Low back pain x 3 months TECHNIQUE: Multiplanar, multisequence images of the lumbar spine were acquired without IV contrast. L1-L2: Normal disc appearance without desiccation. No herniation, protrusion or disc bulging. No ca nal stenosis is present. Foramina are patent bilaterally. L2-L3: Normal disc appearance without desiccation. No herniation, protrusion or disc bulging. No ca nal stenosis is present. Foramina are patent bilaterally. L3-L4: Normal disc appearance without desiccation. No herniation, protrusion or disc bulging. No ca nal stenosis is present. Foramina are patent bilaterally. L4-L5: Normal disc appearance without desiccation. No herniation, protrusion or disc bulging. No ca nal stenosis is present. Foramina are patent bilaterally. L5-S1: Normal disc appearance without desiccation. No herniation, protrusion or disc bulging. No ca nal stenosis is present. Foramina are patent bilaterally. Lumbar segments are intact. No paraspinal masses are identified. Conus medullaris has a normal appe arance. IMPRESSION: Normal examination
== END | disposition home or self-care (01) ==
LOC: RADMRIMAIN 11:02
PROVIDERS: ATTEND Orthopaedic Surgery
DX: M43.16 Spondylolisthesis, lumbar region (principal)
CPT/HCPCS: 72148

== ENCOUNTER → 2023-05-05 | Outpatient (CLI) | payer BC, OTHER ==
[2023-05-05 12:58] VITALS: BP 143/89; PULSE 67; RESP 16; TEMP 98.3
--- NOTE | 2023-05-05 14:43 | P.PAINPG ---
PQRS Measure Charge Sheet Comment: HISTORY OF PRESENT ILLNESS: 33 yr [facility] today w severe and chronic LBP x 1 yr secondary to DDD, spondylosis and facet arthropathy without myelopathy for evaluation. Pt states pain level is provoked at 7 /10 in intensity, constant, localized in the lower lumbar spine, achy in character w shooting pain towards the BLEs and toes. Pain is provoked by walking/ standing for periods of 15 min or more. Pain is alleviated by PT x 4 wks in Jan 2023, chiropractic treatments semi weekly x 4 wks in Dec 2022, heat, ice, medications (Flexeril, Ibu), use of a TENS unit, repositioning and rest. Oswestry axial pain score at 23. PMH: OA, GERD, Ovarian Cysts PSH: Section, Cholecystectomy, Knee Arthroscopic Surgery, Tubal Ligation, Hysteroscopy w Uterine Ablation SH: Daily tobacco use, Rare ETOH use, No illicit drug use FH: Mo- CVA, HTN All: See list Meds: See list REVIEW OF ORGAN SYSTEMS: CONSTITUTIONAL: No fevers or chills. No recent weight loss. NEUROLOGICAL: + numbness and tingling along the distal ex tremities. No seizure disorders or headaches. MUSCULOSKELETAL: + pain PSYCHIATRIC: Denies current depression or suicidal thoughts. Physical Examinations : Constitutional : Cooperative , not in acute distress . Neurologic : Cranial nerve II to XII intact. No focal neurological deficits. Psychiatric : alert & oriented x 3. Matching mood & appropriate affect. Judgment & insight intact. Musculoskeletal : Cervical Spine Motor strength in the deltoid and biceps: Normal right side. Normal Left side Motor strength biceps and the wrist extensors: Normal right side . Normal left side Motor strength in the triceps muscle: Normal right side. Normal left side Deep tendon reflexes: Normal at the biceps. Normal at Brachioradialis. Normal at triceps Vertebral body tenderness to deep palpation over Cervical facet loading test: positive bilaterally Spurling test: positive bilaterally Neck distraction test: positive bilaterally Marisela sign: positive bilaterally Lumbar spine Motor strength lower extremities ,thigh and legs 5/5 Right side , 5/5 Left side Deep tendon reflexes : Normal Knee Jerk. Normal Ankle Jerk Vertebral body tenderness over L5 Bernal Test positive Lumbar facet Loading Test: positive Right / positive Left Range of motion of the lumbar spine Flexion 30 degrees, extension 10 degrees Straight Leg Raise test: Left/ Right positive at 35 degrees Page test: positive right / positive left. Severe tenderness over the Sacroiliac j oint on the Right / Left sides Gaenslen test: positive bilaterally Seated flexion test: positive bilaterally. Sacral spine : Severe tenderness over the Sacroiliac joint: right side / left side Range of motion: Flexion of the lumbar spine <60 degrees Range of motion: Extension of the lumbar spine <20 degrees Gaenslen's Test positive Theodore's Test positive Page test: positive right side / left side Thigh Thrust Test Sacral Thrust Test Imaging: MRI noncontrast of the lumbar spine from 02/26/23 reviewed Assessment/ Plan : L5-S1 mild herniated nucleus pulposus Recommendation of BRYANNA L5-S1 #1. May need a series of injections for optimal pain relief. Risks, benefits of procedure discussed and patient verbalized understanding. Admits to anti- coagulant use or medical history of diabetes. Protocol for discontinuation/ continuation of medications kamlesh procedure discussed. Minimal anesthesia provided, if clinically indicated, consisting of Versed and Fentanyl. All questions answered. I have spent greater than 30 minutes on patient care today. Dr Garcia was available by phone for the evaluation of this patient. The time was used to rev iew the medical records including relevant urine studies and Prescription history (MAPs), review of the available imaging, evaluation and examination of the patient, coordination of care with the medical staff and if applicable referring physicians, as well as creation of the medical record PQRS Narrative: Smoking Status Current every day smoker Home Medications: Ambulatory Orders Rosuvastatin Calcium [Crestor] 5 mg PO HS 06/04/21 Controlled Substance Measures - Controlled Substance Measures Is patient prescribed a controlled substance at discharge?: No
== END ==
LOC: PNWHC3 12:02
PROVIDERS: ATTEND Specialist
DX: M51.26 Other intervertebral disc displacement, lumbar region (principal); M19.90 Unspecified osteoarthritis, unspecified site; K21.9 Gastro-esophageal reflux disease without esophagitis; F17.200 Nicotine dependence, unspecified, uncomplicated; Z88.1 Allergy status to other antibiotic agents
CPT/HCPCS: 99211

== ENCOUNTER 2023-06-03 09:31 | Day surgery (SDC) | payer BC, OTHER ==
[~2023-06-03 09:31] MED LIST changes: -Pre Op ABX Message 1 EACH MISC MISCELLANE ONE
[2023-06-03 09:57] VITALS: TEMP 98.1
[2023-06-03] MEDS ORDERED: IOPAMIDOL M200 10 ML VIAL ONE (10:33)
[2023-06-03] MEDS ORDERED: methylPREDNISolone ACETATE 80 MG/ML 1 ML VIAL ONE (10:33)
--- NOTE | 2023-06-03 10:37 | P.PCN ---
Date of Procedure: 06/03/23 Procedure(s) Performed: PREOPERATIVE DIAGNOSIS: 1- Lumbar herniated Disc Diseases. 2-lumbar radiculopathy POSTOPERATIVE DIAGNOSIS: Same as preop diagnosis PROCEDURE 1. Lumbar epidural steroid injection under fluoroscopic guidance at the L5-S1 level. (Fluoroscopy imaging was available in radiology department) 2. Lumbar epidurogram. ANESTHESIA: Lidocaine 1% 3 and then only. EBL: Minimal PROCEDURE INDICATION: The patient with low back pain and radiculitis symptoms unresponsive to conservative treatment. Fluoroscopy was used to optimize visualization of the needle placement and to maximize safety. PROCEDURE DESCRIPTION / TECHNIQUE: The patient was seen and identified in the preoperative area. Risks, benefits, complications including but not limited to infections ,bleeding ,allergic reaction to the medications ,nerve damage and not complete pain releife , and a lternatives were discussed with the patient. The patient agreed to proceed with the procedure and signed the consent, and vital signs were stable. Patient was taken to the OR and time out was completed. The patient was placed in the prone position on procedure table and a pillow was placed under the abdomen to reduce lumbar lordosis. The lumbosacral area was prepped and draped in the usual sterile fashion.ere closely monitored during the procedure. Vital signs was monitered during the entire procedure. Using anterior-posterior fluoroscopy, the L5-S1 interlaminar space was identified and the skin over this site was marked and then infiltrated with 1% lidocaine subcutaneously. Subsequently, a 20-gauge Tuohy epidural needle was inserted and advanced toward the epidural space using the ``Loss of resistance technique and guided by AP and lateral fluoroscopy. The correct needle position in the epidural space was verified with the injection of 2 mL of the water soluble contrast dye Isovue 200 contrast and observing an excellent epidurogram with the epidural spread of the dye, after negative aspiration for blood and CSF and in the absence of paresthesias. Again after negative aspiration, a 6 ml mixture containing 80 mg of Depo-medrol ( Preservetive Free ), and 2 ml of preservative free Normal Saline, and 2 ml of preservative free lidocaine 1% solution was injected and a washout of epidurogram was seen. Needle was withdrawn intact, skin was cleansed, and bandages were applied. COMPLICATIONS: None DISPOSITION / PLANS: The patient was placed in a supine position and transferred to the recovery area in a stable condition for observation. There was no evidence of lower extremity motor or sensory deficit after the procedure. Patient was discharged from the recovery room after meeting discharge criteria. Home discharge instructions were given to the patient by the staff. The patient was reexamined prior to discharge. The patient will schedule a follow up in the clinic in 2-4 weeks.
--- NOTE | 2023-06-03 10:43 | FL ---
Intraoperative/procedural fluoroscopic services were provided for lumbar epidural steroid injection. Total fluoroscopy time is 3.8 seconds with a total of 1 submitted image to PACS. Total DAP [id number] mG ym2. Please see the operative note for further details.
[2023-06-03 11:50] VITALS: BP 159/89; PULSE 66; RESP 18
== END 2023-06-03 11:30 | disposition home or self-care (01) ==
LOC: ORPAIN 09:31
PROVIDERS: ATTEND Specialist
DX: M51.16 Intervertebral disc disorders with radiculopathy, lumbar region (principal); Z88.1 Allergy status to other antibiotic agents
CPT/HCPCS: 62323; J1040; Q9966

== ENCOUNTER → 2023-11-03 | Outpatient (CLI) | payer SELFPAY ==
[2023-11-04 02:14] LABS: Basophils # (A) 0.09 X 10*3/uL (0.00-0.10); Basophils % (A) 0.7 %; Eosinophils # (A) 0.65 X 10*3/uL (0.04-0.35); Eosinophils % (A) 5.1 %; HCT 43.7 % (37.2-46.3); HGB 14.6 g/dL (12.0-15.0); Lymphocytes % (A) 31.2 %; MCH 29.5 pg (27.0-32.0); MCHC 33.4 g/dL (32.0-37.0); MCV 88.3 FL (80.0-97.0); Mean Platelet Volume 10.8 FL (9.5-12.2); Monocytes # (A) 0.57 X 10*3/uL (0.20-1.00); Monocytes % (A) 4.4 %; NRBC Per 100 WBC 0 X 10*3/uL (0.00-0.01); Neutrophils # (A) 7.44 X 10*3/uL (1.80-7.70); Neutrophils % (A) 58.1 %; Platelet Count 347 X 10*3/uL (140-440); RBC 4.95 X 10*6/uL (4.10-5.20); RDW 14.4 % (11.5-14.5); WBC 12.81 X 10*3/uL (4.50-10.00)
[2023-11-04 02:31] LABS: Blood Urea Nitrogen 11.8 mg/dL (9.0-27.0); Carbon Dioxide 25.2 mmol/L (21.6-31.8); Chloride 103 mmol/L (96-109); Glucose 85 mg/dL (70-110); Potassium 4.3 mmol/L (3.5-5.5); Sodium 139 mmol/L (135-145)
== END | disposition home or self-care (01) ==
LOC: LABPAT 15:34
PROVIDERS: ATTEND Obstetrics & Gynecology
DX: Z01.812 Encounter for preprocedural laboratory examination (principal); N94.6 Dysmenorrhea, unspecified; R10.2 Pelvic and perineal pain
CPT/HCPCS: 36415; 80051; 82565; 82947; 84520; 85025; 86850; 86900; 86901; 87086

== ENCOUNTER → 2024-01-03 | Outpatient (CLI) | payer OTHER ==
[2024-01-03 15:52] LABS: Blood Urea Nitrogen 10.4 mg/dL (9.0-27.0); Carbon Dioxide 22.5 mmol/L (21.6-31.8); Chloride 103 mmol/L (96-109); Glucose 107 mg/dL (70-110); Potassium 4.2 mmol/L (3.5-5.5); Sodium 137 mmol/L (135-145)
[2024-01-03 15:58] LABS: Basophils # (A) 0.08 X 10*3/uL (0.00-0.10); Basophils % (A) 0.6 %; Eosinophils # (A) 0.57 X 10*3/uL (0.04-0.35); Eosinophils % (A) 4.2 %; HCT 43.6 % (37.2-46.3); HGB 14.6 g/dL (12.0-15.0); Lymphocytes # (A) 3.72 X 10*3/uL (0.90-5.00); Lymphocytes % (A) 27.3 %; MCHC 33.5 g/dL (32.0-37.0); MCV 86.5 FL (80.0-97.0); Mean Platelet Volume 11.5 FL (9.5-12.2); Monocytes % (A) 3.7 %; NRBC Per 100 WBC 0 X 10*3/uL (0.00-0.01); Neutrophils # (A) 8.68 X 10*3/uL (1.80-7.70); Neutrophils % (A) 63.5 %; Platelet Count 324 X 10*3/uL (140-440); RBC 5.04 X 10*6/uL (4.10-5.20); RDW 13.8 % (11.5-14.5); WBC 13.65 X 10*3/uL (4.50-10.00)
== END | disposition home or self-care (01) ==
LOC: LABPAT 11:35
PROVIDERS: ATTEND Obstetrics & Gynecology
DX: Z01.812 Encounter for preprocedural laboratory examination (principal); N94.6 Dysmenorrhea, unspecified; R10.2 Pelvic and perineal pain
CPT/HCPCS: 80051; 82565; 82947; 84520; 85025; 86850; 86900; 86901; 87086

== ENCOUNTER 2024-01-10 05:43 | Day surgery (SDC) | payer OTHER ==
--- NOTE | 2023-11-04 17:49 | P.HPIHPCON ---
History of Present Illness H&P Date: 11/04/23 Chief Complaint: Chronic pelvic pain, tubal ligation ablation syndrome Ms. García is a 33 year old who presents with a year-long history of worsening lower back pain, dysmenorrhea, and abnormal uterine bleeding. She has had imaging of the spine, has gone to physical therapy for the back pain, and has had nerve testing done with neurology without any improvement in symptoms and no etiology identified. She states the pain is very similar to the contractions she had while in labor with her first child. She does have surgical history significant for Dhara endometrial ablation in 2020 with a tubal ligation with Filshie clips at the time of her last . She also complains of increased pain with menstrual cycles and dyspareunia. Menses are every 28 days, last 4 days, and are medium flow. The pain is 10/10 at its worst. On most days, the pain can reach 5/10 pain. Exertion such as doing chores or doing the laundry or changing positions exacerbates the pain. She takes Motrin as needed for the pain, which only helps at times. She also uses Flexeril as nee ded at bedtime for sleep. She feels as though the pain is interfering with her daily functioning and her ability to take care of her two children. 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 Consent for Procedure: I have explained the operation/procedure to the patient, including the risks, benefits, side effects, alternative therapies (including not receiving the proposed treatment or service), the likelihood of the patient achieving his/her goals, and potential recuperation problems for the procedure/sedation/analgesia, as well as any blood products, if indicated. I also explained to the patient the risks, benefits and side effects of the alternatives, as well as the risks related to not receiving the proposed procedure, care, treatment, or services. Past Medical History Past Medical History: GERD/Reflux, Hyperlipidemia, Musculoskeletal Disorder Additional Past Medical History / Comment(s): ovarian cysts, hx kidney stones, frequent back pain History of Any Multi-Drug Resistant Organisms: None Reported Past Surgical History: Section, Cholecystectomy, Orthopedic Surgery, Tubal Ligation, Uterine Ablation Additional Past Surgical History / Comment(s): Section X2, right knee arthroscopy, hysteroscopy/ablation Past Anesthesia/Blood Transfusion Reactions: No Reported Reaction Smoking Status: Current every day smoker - Past Family History Mother Family Medical History: CVA/TIA, Hypertension Additional Family Medical History / Comment(s): in her 40's due to elevated BP Medications and Allergies Home Medications Medication Instructions Recorded Confirmed Type Ibuprofen [Motrin Ib] 200 mg PO Q6H PRN 06/01/23 11/04/23 History Omeprazole 20 mg PO HS 06/03/23 11/04/23 History Multivitamins, Thera [Multivitamin 1 tab PO DAILY 11/04/23 11/04/23 History (formulary)] Allergies Allergy/AdvReac Type Severity Reaction Status Date / Time ciprofloxacin [From Cipro] Allergy DIZZINESS Verified 11/04/23 13:32 Surgical - Exam Focused physical exam is performed. This is a healthy-appearing female in no apparent distress. Breathing is non-labored. Abdomen is soft and non-tender. Extremities are non-tender and non-edematous. Assessment and Plan Assessment: 33 year old with dysmenorrhea and chronic pelvic pain consistent with tubal ligation ablation syndrome presents for definitive management with hysterectomy Plan: Risks, benefits, and alternatives to Robotic Assisted Total Laparoscopic Hysterectomy, Bilateral Salpingectomy, and Cystoscopy with Possible Laparotomy, Possible Oophroectomy discussed with the patient including risk of bleeding, infection, damage to surrounding structures including bladder/bowel/ureters, and risk of post-operative VTE. The patient understands these risks and desires to proceed with surgery as scheduled. All questions answered. Time with Patient: Less than 30
[2024-01-05 10:15] VITALS: BMI 40.2
--- NOTE | 2024-01-07 09:48 | P.HPIHPCON ---
History of Present Illness H&P Date: 01/07/24 Chief Complaint: Abnormal uterine bleeding, dysmenorrhea History of Present Illness H&P Date: 11/04/23 Ms. García is a 33 year old who presents with a year-long history of worsening lower back pain, dysmenorrhea, and abnormal uterine bleeding. She has had imaging of the spine, has gone to physical therapy for the back pain, and has had nerve testing done with neurology without any improvement in symptoms and no etiology identified. She states the pain is very similar to the contractions she had while in labor with her first child. She does have surgical history significant for Dhara endometrial ablation in 2020 with a tubal ligation with Filshie clips at the time of her last . She also complains of increased pain with menstrual cycles and dyspareunia. Menses are every 28 days, last 4 days, and are medium flow. The pain is 10/10 at its worst. On most days, the pain can reach 5/10 pain. Exertion such as doing chores or doing the laundry or changing positions exacerbates the pain. She takes Motrin as needed for the pain, which only helps at times. She also uses Flexeril as needed at bedtime for sleep. She feels as though the pain is interfering with her daily functioning and her ability to take care of her two children. 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 Consent for Procedure: I have explained the operation/procedure to the patient, including the risks, benefits, side effects, alternative therapies (including not receiving the proposed treatment or service), the likelihood of the patient achieving his/her goals, and potential recuperation problems for the procedure/sedation/analgesia, as well as any blood products, if indicated. I also explained to the patient the risks, benefits and side effects of the alternatives, as well as the risks related to not receiving the proposed procedure, care, treatment, or services. Past Medical History Past Medical History: GERD/Reflux, Hyperlipidemia, Musculoskeletal Disorder Additional Past Medical History / Comment(s): ovarian cysts, hx kidney stones, frequent back pain History of Any Multi-Drug Resistant Organisms: None Reported Past Surgical History: Section, Cholecystectomy, Orthopedic Surgery, Tubal Ligation, Uterine Ablation Additional Past Surgical History / Comment(s): Section X2, right knee arthroscopy, hysteroscopy/ablation Past Anesthesia/Blood Transfusion Reactions: No Reported Reaction Smoking Status: Current every day smoker - Past Family History Mother Family Medical History: CVA/TIA, Hypertension Additional Family Medical History / Comment(s): in her 40's due to elevated BP Medications and Allergies Home Medications Medication Instructions Recorded Confirmed Type Ibuprofen [Motrin Ib] 200 mg PO Q6H PRN 06/01/23 11/04/23 History Omeprazole 20 mg PO HS 06/03/23 11/04/23 History Multivitamins, Thera [Multivitamin 1 tab PO DAILY 11/04/23 11/04/23 History (formulary)] Allergies Allergy/AdvReac Type Severity Reaction Status Date / Time ciprofloxacin [From Cipro] Allergy DIZZINESS Verified 01/05/24 10:07 Surgical - Exam Focused physical exam is performed. Breathing is non-labored. Abdomen soft, non- tender. Extremities non-tender and non-edematous. Assessment and Plan Assessment: 33 year old with dysmenorrhea and chronic pelvic pain consistent with tubal ligation ablation syndrome presents for definitive management with hysterectomy Plan: Risks, benefits, and alternatives to Robotic Assisted Total Laparoscopic Hysterectomy, Bilateral Salpingectomy, and Cystoscopy with Possible Laparotomy, Possible Oophroectomy discussed with the patient including risk of bleeding, infection, damage to surrounding structures including bladder/bowel/ureters, and risk of post-operative VTE. The patient understands these risks and desires to proceed with surgery as scheduled. All questions answered.
[2024-01-10] MEDS ORDERED: LIDOCAINE 1% (10MG/ML) FOR IV START INTRADERMA PRN (06:05)
[2024-01-10] MEDS: IV FLUID CONTINUATION 1,000 ML IV ONE (06:22)
[2024-01-10] MEDS: FAMOTIDINE 20 MG/2 ML VIAL IV STA (06:50)
[2024-01-10] MEDS: DEXAMETHASONE SOD PHOSPHATE 4 MG/ML 1 ML VIAL IV ONE (06:50)
[2024-01-10] MEDS: ONDANSETRON 4 MG/2 ML VIAL IVP ONE (06:50)
[2024-01-10] MEDS: LACTATED RINGERS 1,000 ML IV SCH (06:52)
[2024-01-10] MEDS: MIDAZOLAM 2 MG/2 ML VIAL IVP ONE (06:59)
[2024-01-10] MEDS ORDERED: HYDROmorphone 0.5 MG/0.5 ML SYRINGE IVP PRN (07:00)
[2024-01-10] MEDS ORDERED: NALOXONE 0.4 MG/ML 1 ML VIAL IV PRN (07:11)
--- NOTE | 2024-01-10 07:11 | P.ANPRN ---
Procedure Note - Anesthesia - Epidural/Spinal Spinal Time Out Performed: Yes Date of Procedure: 01/10/24 Procedure Start Time: 06:58 Procedure Stop Time: 07:03 Location of Patient: PreOp Indication: Acute Post-Operative Pain, Analgesia, Requested by Surgeon Sedation Type: Sedate with meaningful contact maintained Preparation: Sterile Prep Position: Sitting Catheter: None Needle Guage: 25 Narrative: Duramorph 0.3mg. AttamptX1. Needle L3-4 space. Blood Aspirated: No Pain Paresthesia on Injection Noted: No Events: Uneventful and Well Tolerated
[2024-01-10] MEDS ORDERED: MIDAZOLAM 2 MG/2 ML VIAL ONE (07:30)
[2024-01-10] MEDS ORDERED: PHENYLEPHRINE-0.9% NACL SYG 1,000 MCG/10 ML SYRINGE ONE (07:30)
[2024-01-10] MEDS ORDERED: SUCCINYLCHOLINE CHLORIDE 200 MG/10 ML VIAL IV ONE (07:30)
[2024-01-10] MEDS ORDERED: KETOROLAC 30 MG/ML 1 ML VIAL ONE (07:30)
[2024-01-10] MEDS ORDERED: HYDROmorphone (PF) 1 MG/ML ONE (07:30)
[2024-01-10] MEDS ORDERED: NEOSTIGMINE 1 MG/ML 10 ML VIAL ONE (07:30)
[2024-01-10] MEDS ORDERED: fentaNYL (PF) 50 MCG/ML 2 ML AMP ONE (07:30)
[2024-01-10] MEDS ORDERED: PROPOFOL 10 MG/ML 20 ML VIAL IV ONE (07:30)
[2024-01-10] MEDS ORDERED: ROCURONIUM 10 MG/ML (5 ML VIAL) IV ONE (07:30)
[2024-01-10] MEDS ORDERED: GLYCOPYRROLATE 0.2 MG/ML 2 ML VIAL ONE (07:30)
[2024-01-10] MEDS ORDERED: LIDOCAINE 1% INJ 10MG/ML (20 ML MDV) ONE (07:30)
[2024-01-10] MEDS: BUPIVACAINE (PF) 0.25% 30 ML VIAL SQ ONE ×2 (08:05)
[2024-01-10] MEDS: LACTATED RINGERS 1,000 ML IV ONE (09:05)
--- NOTE | 2024-01-10 09:13 | P.OP ---
Date of Procedure: 01/10/24 Preoperative Diagnosis: 1. Abnormal uterine bleeding 2. Dysmenorrhea 3. Failed endometrial ablation Postoperative Diagnosis: Same and abdominal wall adhesions Procedure(s) Performed: Robotic Assisted Total Laparoscopic Hysterectomy, Bilateral Salpingectomy, Lysis of Adhesions (15 minutes), and Cystoscopy Implants: None Anesthesia: APOLONIAA Surgeon: Krissy Allen Chemical Strength Tester #1: Nasreen Velásquez Estimated Blood Loss (ml): 50 IV fluids (ml): 900 Urine output (ml): 100 (clear yellow) Pathology: other (uterus, cervix, bilateral fallopian tubes) Condition: stable Disposition: floor Indications for Procedure: 33 year old with dysmenorrhea and chronic pelvic pain consistent with tubal ligation ablation syndrome presents for definitive management with hysterectomy. Risks, benefits, and alternatives to Robotic Assisted Total Laparoscopic Hysterectomy, Bilateral Salpingectomy, and Cystoscopy with Possible Laparotomy, Possible Oophroectomy discussed with the patient including risk of bleeding, infection, damage to surrounding structures including bladder/bowel/ureters, and risk of post-operative VTE. The patient understands these risks and desires to proceed with surgery as scheduled. All questions answered. Operative Findings: Dense anterior abdominal wall adhesions to omentum were noted in the upper abdomen. Uterus and bilateral fallopian tubes were unremarkable. Right ovary with a simple appearing cyst, left ovary unremarkable. Bilateral ureteral jets seen on cystoscopy. Description of Procedure: Prior to the beginning of the procedure, the team paused to verify the patients identity, the procedure to be performed (in accordance with the consent,) and the correct side/site. The patient was positioned appropriately. All relevant images and results were properly labeled and displayed. We addressed antibiotic prophylaxis and fluids for irrigation as applicable to this patient. Any safety precautions were addressed. The patient was taken to the operating room where general anesthesia was induced without difficulty. She was then positioned in the dorsal lithotomy position in Samuel stirrups. Positioning included placing her arms at her sides. After the patient was placed in what was felt to be a neurologically safe position, deep Trendelenburg position was tested prior to the operative procedure, to ensure that she would not move on the operating table. The patient was then prepped and draped in the normal sterile fashion for a combined abdominovaginal surgery. A Maldonado catheter was placed in the bladder for continuous drainage. Uterus was sounded to 10 cm. [id number]-[id number] manipulator was placed in the uterus for manipulation. Attention was then placed to the abdomen. The normal length Veress needle was introduced into the abdominal cavity while tenting the abdominal wall. Low pressure was noted confirming appropriate placement. The abdomen was then insufflated to 15mmHg for the remainder of the case. The Veress needle was removed, and an 8 mm port was placed at the umbilical site under direct laparscopic visualization and there was no evidence of injury from the trocar placement. Visualization of the intraabdominal cavity showed normal pelvic anatomy without evidence of adhesions. The port sites for the remainder of the case were then measured out and placed under direct visualization. On the left side, one 8 mm robotic assist port and one 10 mm assist port were placed. On the right side, one 8 mm robotic port was placed. The [employer] robot was then brought to the operative field in a lateral docking style to the left of the patient and the robot was docked to the ports. All robotic instruments were brought into the pelvis under direct visualization with monopolar scissors in arm #3 and vessel sealer in arm #1. The adhesions to the anterior abdominal wall were taken down with the monopolar scissors. The right fallopian tube was grasped at the fimbriated end and was sequentially cauterized and cut to the level of the right uterine cornua. The right uteroovarian ligement was cauterized and cut. The right round ligament was cauterized and cut. Broad ligament was opened and bladder flap created. This was repeated on the left side. The peritoneum of the bilateral broad ligaments was then taken down and monopolar cautery used to skeletonize the uterine arteries bilaterally. During the course of this dissection, the anterior leaf of the broad ligament was also taken down over the anterior aspect of the uterus and cervix to create a bladder flap. The bladder was then dissected off the cervix and upper vagina with the monopolar scissors and gentle blunt dissection. The bilateral uterine arteries were then cauterized and divided at the level of the internal cervical os. The monopolar cautery was used to incise the vaginal cuff. The uterus, along with the cervix was removed vaginally. Cuff was closed in with 0-Stratifix sutures. Excellent hemostasis was noted at this time. A 70 degree cystoscopy was performed which confirmed no suture placement within the bladder, no trauma to the bladder. Good efflux was noted from both ureteric orifices. The robot was undocked from the trocars and brought out of the operative field. The remainder of the ports were removed, and the gas was allowed to escape. All skin incisions were infiltrated with lidocaine and closed with 4-0 Monocryl and dermabond. Hemostasis was noted to be excellent throughout, and final sponge, instrument, and needle count was noted to be correct. The patient was moved back to the preoperative holding area in stable condition having tolerated the procedure well. A physician surgical scrub technologist was utilized for the entire procedure due to the need for tissue retraction, dissection of vital structures, prevention and management of blood loss, and reduction in overall operative and anesthesia time as is the standard of care.
[2024-01-10] MEDS ORDERED: KETOROLAC 15 MG/ML 1 ML VIAL IVP PRN (09:58)
[2024-01-10] MEDS ORDERED: SIMETHICONE 80 MG CHEWABLE PO PRN (09:58)
[2024-01-10 15:23] VITALS: RESP 16
[2024-01-10] MEDS: SCOPOLAMINE 1 MG/72 HR PATCH TRANSDERM ONE (15:26)
[2024-01-10] MEDS: droPERidol 5 MG/2 ML VIAL IVP ONE (15:26)
[2024-01-10] MEDS: ONDANSETRON 4 MG/2 ML VIAL IVP PRN (17:41)
[2024-01-10] MEDS: SENNOSIDES-DOCUSATE SODIUM 1 EACH TAB PO SCH (22:08)
[2024-01-11] MEDS: IBUPROFEN 600 MG TAB PO PRN (00:02)
[2024-01-11] MEDS: diphenhydrAMINE 25 MG CAP PO STA (05:51)
--- NOTE | 2024-01-11 07:13 | P.PN ---
Progress Note - Text 01/11/24 614am 33-year-old female status post lap vaginal hysterectomy. Patient received spinal Duramorph for postop pain control, patient seen and evaluated, she has a VAS of 1 with no complaints of nausea vomiting or pruritus. She was treated for nausea vomiting and pruritus yesterday but is doing better today
[2024-01-11 07:29] LABS: HCT 38.4 % (34.0-46.0); HGB 12.2 gm/dL (11.4-16.0); MCH 29.2 pg (25.0-35.0); MCHC 31.8 g/dL (31.0-37.0); MCV 91.9 fL (80.0-100.0); Mean Platelet Volume 8.9; Platelet Count 257 k/uL (150-450); RBC 4.18 m/uL (3.80-5.40); RDW 13.6 % (11.5-15.5)
[2024-01-11 08:03] VITALS: BP 125/70; PULSE 77; TEMP 98.2
[2024-01-11 08:37] LABS: Eosinophils # (M) 0.44 k/uL (0-0.7); Monocytes # (M) 0.44 k/uL (0-1.0); Neutrophils # (M) 17.82 k/uL (1.3-7.7); Neutrophils % (M) 81 %; Nucleated Red Blood Cells 0 /100 WBC (0-0); Total Cells Counted 100
[2024-01-11 08:40] LABS: RBC Morphology Normal
--- NOTE | 2024-01-11 08:56 | P.DS ---
Providers Date of admission: 01/10/2024 Expected date of discharge: 01/11/24 Attending physician: Krissy Allen MD Primary care physician: [facility] Course: Ms. García is a 33 year old P2 who is POD#1 s/p FARHAD, BS, Cystoscopy. The patient is doing well this morning and had no acute events overnight. She has no complaints this morning. She reports minimal vaginal spotting, passing flatus, voiding without difficulty, ambulating, and eating/drinking without nausea or vomiting. She denies chest pain, shortness of breathing, fevers, or chills overnight. She denies pain or swelling in the legs. Postoperative restrictions are reviewed with the patient including pelvic rest for 6 weeks, no lifting heavier than 15 pounds for 6 weeks. The patient is encouraged to call the office if she experiences any heavy bleeding, foul-smelling discharge, or any if she has any other concerns. She will follow up in the office with in 2 weeks for postoperative exam. All questions are answered. Assessment: 33 year old P2 POD#1 s/p FARHAD, BS, Cystoscopy Patient Condition at Discharge: Good Plan - Discharge Summary Discharge Rx Participant: Yes New Discharge Prescriptions: No Action Ibuprofen [Motrin Ib] 200 mg PO Q6H PRN PRN Reason: Pain Omeprazole 20 mg PO HS Multivitamins, Thera [Multivitamin (formulary)] 1 tab PO DAILY Discharge Medication List Ibuprofen [Motrin Ib] 200 mg PO Q6H PRN 06/01/23 [History] Omeprazole 20 mg PO HS 06/03/23 [History] Multivitamins, Thera [Multivitamin (formulary)] 1 tab PO DAILY 11/04/23 [History] Follow up Appointment(s)/Referral(s): Miguel Chung MD [Primary Care Provider] - 1 Week (YOU NEED TO SET UP AN APPOINTMENT TO HAVE A SLEEP STUDY. DR. CHUNG CAN MAKE THAT APPOINTMENT.) Krissy Allen MD [STAFF PHYSICIAN] - 2 Weeks Activity/Diet/Wound Care/Special Instructions: Postoperative Instructions 1. No heavy lifting or straining (exercising) until after 6 week checkup. 2. Do not resume sexual relations for 6 weeks or longer if uncomfortable. 3. Keep abdominal incision clean and dry: You may wear a dressing if more comfortable. 4. Keep any areas repaired with stitches clean and dry. 5. Call the office, , within the next week to make appointment for your 2 week checkup 6. Report any of the following occurrences to the doctor promptly: a. Heavy, excessive bleeding b. Chills, fever c. Burning or frequency of urination d. Pain or redness around the incisions Discharge Disposition: HOME SELF-CARE
[2024-01-11] MEDS ORDERED: ACETAMINOPHEN TAB 325 MG TAB PO PRN (09:59)
== END 2024-01-11 09:45 | disposition home or self-care (01) ==
LOC: OR 05:43 → 4FBP 09:53 → OR 01-11 09:45
PROVIDERS: ATTEND Obstetrics & Gynecology
DX: N72 Inflammatory disease of cervix uteri (principal); N83.8 Other noninflammatory disorders of ovary, fallopian tube and broad ligament; N87.9 Dysplasia of cervix uteri, unspecified; N83.291 Other ovarian cyst, right side; K66.0 Peritoneal adhesions (postprocedural) (postinfection); N93.9 Abnormal uterine and vaginal bleeding, unspecified; N94.6 Dysmenorrhea, unspecified; Q51.3 Bicornate uterus; G89.29 Other chronic pain; G89.18 Other acute postprocedural pain; Z98.51 Tubal ligation status; K21.9 Gastro-esophageal reflux disease without esophagitis; E78.5 Hyperlipidemia, unspecified; Z88.1 Allergy status to other antibiotic agents; F17.200 Nicotine dependence, unspecified, uncomplicated; Z79.899 Other long term (current) drug therapy
CPT/HCPCS: 58571; 64999; S2900; 81025; 85025; 88309

== ENCOUNTER → 2024-02-21 | Outpatient (CLI) | payer OTHER ==
--- NOTE | 2024-02-21 22:41 | MR ---
EXAMINATION TYPE: MR brain wo con DATE OF EXAM: 02/21/2024 COMPARISON: NONE HISTORY: Headache, specifically front left eyebrow x2 weeks TECHNIQUE: Multiplanar, multisequence imaging of the brain and brainstem is performed without IV cont rast. FINDINGS: Diffusion weighted images demonstrate no evidence of a recent infarct or other diffusion abnormality. There is no extraaxial fluid collection or significant white matter signal abnormality. The ventricu lar system and cisternal spaces are normal in size and appearance. The brain volume is age appropria te. Midline structures demonstrate normal morphology. The craniocervical junction appears within normal limits. Normal vascular flow voids are present. The globes are intact bilaterally. Completely opacif ied left maxillary sinus and left ethmoid sinuses. Globes are intact bilaterally. IMPRESSION: Left sided paranasal sinus disease otherwise unremarkable study.
--- NOTE | 2024-02-21 22:47 | MR ---
EXAMINATION TYPE: MR angio head wo con DATE OF EXAM: 02/21/2024 COMPARISON: NONE HISTORY: Headache, specifically front left eyebrow x2 weeks TECHNIQUE: Time of flight images focusing on the [place] were performed without contrast.. 2-D and 3-D postprocessing imaging is performed. FINDINGS: Vertebral arteries are codominant and patent to the basilar junction. There are patent bila teral posterior communicating and anterior communicating artery seen. There is no large vessel occlus ion or aneurysm at the level of the [place]. IMPRESSION: No aneurysm at the level of the [place].
== END | disposition home or self-care (01) ==
LOC: RADMRIMAIN 21:15
PROVIDERS: ATTEND Family Medicine
DX: R51.9 Headache, unspecified (principal)
CPT/HCPCS: 70544; 70551

== ENCOUNTER 2024-02-27 03:21 | Emergency (ER) | payer OTHER ==
--- NOTE | 2024-02-27 04:51 | ED ---
Headache HPI - General Chief Complaint: Headache Stated Complaint: Headache Time Seen by Provider: 02/27/24 04:30 Mode of arrival: ambulatory Limitations: no limitations - History of Present Illness Initial Comments: Patient is a 34-year-old woman who presents to evaluation for headaches which have been going on approximately 3 weeks. The patient did have a recent MRI. The patient denies neurologic symptoms, fever or chills, neck stiffness. MD Complaint: headache Onset/Timin -: hour(s) Onset Description: gradual Location: occipital Severity: moderate Quality: aching, throbbing Consistency: constant Improves With: nothing Worsens With: none Context: occurred at rest Treatments Prior to Arrival: Ibuprofen - Related Data Home Medications Medication Instructions Recorded Confirmed Ibuprofen [Motrin Ib] 200 mg PO Q6H PRN 06/01/23 01/10/24 Omeprazole 20 mg PO HS 06/03/23 01/10/24 Multivitamins, Thera [Multivitamin 1 tab PO DAILY 11/04/23 01/10/24 (formulary)] Allergies Allergy/AdvReac Type Severity Reaction Status Date / Time ciprofloxacin [From Cipro] Allergy DIZZINESS Verified 01/10/24 06:26 Review of Systems ROS Statement: Those systems with pertinent positive or pertinent negative responses have been documented in the HPI. ROS Other: All systems not noted in ROS Statement are negative. Constitutional: Denies: fever, chills, weakness Eyes: Denies: eye pain, vision change Respiratory: Denies: cough, dyspnea Cardiovascular: Denies: chest pain, syncope Gastrointestinal: Denies: abdominal pain, nausea, vomiting Genitourinary: Denies: dysuria, hematuria Musculoskeletal: Denies: back pain Skin: Denies: rash Neurological: Reports: headache. Denies: weakness, numbness Past Medical History Past Medical History: GERD/Reflux, Hyperlipidemia Additional Past Medical History / Comment(s): Rhinitis/sinus issures, ovarian cysts, hx kidney stones History of Any Multi-Drug Resistant Organisms: None Reported Past Surgical History: Section, Cholecystectomy, Hysterectomy, Orthopedic Surgery, Tubal Ligation, Uterine Ablation Additional Past Surgical History / Comment(s): Section X2, right knee arthroscopy, hysteroscopy/ablation Past Anesthesia/Blood Transfusion Reactions: No Reported Reaction Past Psychological History: No Psychological Hx Reported Smoking Status: Current every day smoker Past Alcohol Use History: Rare Past Drug Use History: None Reported - Past Family History Mother Family Medical History: CVA/TIA, Hypertension Additional Family Medical History / Comment(s): in her 40's due to elevated BP General Exam Limitations: no limitations General appearance: alert, in no apparent distress Head exam: Present: atraumatic, normocephalic Eye exam: Present: normal appearance, PERRL, EOMI. Absent: scleral icterus, conjunctival injection, nystagmus ENT exam: Present: normal oropharynx Neck exam: Present: normal inspection, full ROM. Absent: tenderness, meningismus Respiratory exam: Present: normal lung sounds bilaterally. Absent: respiratory distress, wheezes, rales, rhonchi, stridor Cardiovascular Exam: Present: regular rate, normal rhythm, normal heart sounds. Absent: systolic murmur, diastolic murmur, rubs, gallop Extremities exam: Present: normal inspection, normal capillary refill Neurological exam: Present: alert, oriented X3, CN II-XII intact. Absent: motor sensory deficit Skin exam: Present: warm, dry, intact, normal color. Absent: rash Course Vital Signs 02/27/24 02/27/24 02/27/24 03:37 04:41 06:07 Temperature 98.4 F Pulse Rate 85 77 66 Respiratory 18 18 16 Rate Blood Pressure 191/98 148/85 147/69 O2 Sat by Pulse 99 98 96 Oximetry 02/27/24 07:14 Temperature 98.3 F Pulse Rate 60 Respiratory 18 Rate Blood Pressure 166/91 O2 Sat by Pulse 60 L Oximetry Medical Decision Making - Medical Decision Making Was pt. sent in by a medical professional or institution (, PA, BOOK AUTHOR, urgent care, hospital, or assisted...) When possible be specific @ -[No] Did you speak to anyone other than the patient for history (EMS, parent, family, police, friend...)? What history was obtained from this source @ -[No] Did you review nursing and triage notes (agree or disagree)? Why? @ -[I reviewed and agree with nursing and triage notes] Were old charts reviewed (outside hosp., previous admission, EMS record, old EKG, old radiological studies, urgent care reports/EKG's, assisted records)? Report findings @ -[No old charts were reviewed] Differential Diagnosis (chest pain, altered mental status, abdominal pain women, abdominal pain men, vaginal bleeding, weakness, fever, dyspnea, syncope, headache, dizziness, GI bleed, back pain, seizure, CVA, palpatations, mental health, musculoskeletal)? @ -[Differential Headache: Migraine, tension, cluster, carbon monoxide, central venous thrombosis, pension [employer] temporal arteritis, acute closure glaucoma, intercranial hemorrhage, mastoiditis, sinusitis, head injury, this is not meant to be an all-inclusive list. EKG interpreted by me (3pts min.). @ -[As above] X-rays interpreted by me (1pt min.). @ -[None done] CT interpreted by me (1pt min.). @ -[None done] U/S interpreted by me (1pt. min.). @ -[None done] What testing was considered but not performed or refused? (CT, X-rays, U/S, labs)? Why? @ -[None] What meds were considered but not given or refused? Why? @ -[None] Did you discuss the management of the patient with other professionals (professionals i.e. , PA, BOOK AUTHOR, lab, RT, psych nurse, clinical social worker, conductor yard, teacher, chief operating officer, disease case manager)? Give summary @ -[No] Was smoking cessation discussed for >3mins.? @ -[No] Was critical care preformed (if so, how long)? @ -[No] Were there social determinants of health that impacted care today? How? (Homele ssness, low income, unemployed, alcoholism, drug addiction, transportation, low edu. Level, literacy, decrease access to med. care, senior care, rehab)? @ -[No] Was there de-escalation of care discussed even if they declined (Discuss DNR or withdrawal of care, Hospice)? DNR status @ -[No] What co-morbidities impacted this encounter? (DM, HTN, Smoking, COPD, CAD, Cancer, CVA, ARF, Chemo, Hep., AIDS, mental health diagnosis, sleep apnea, morbid obesity)? @ -[None] Was patient admitted / discharged? Hospital course, mention meds given and route, prescriptions, significant lab abnormalities, going to OR and other pertinent info. @ -[Patient is a 34-year-old woman with headache. She did have recent imaging and therefore no new imaging obtained. The patient did have improvement in symptoms with medication. Discussed further follow-up as well as return parameters. Undiagnosed new problem with uncertain prognosis? @ -[No] Drug Therapy requiring intensive monitoring for toxicity (Heparin, Nitro, Insulin, Cardizem)? @ -[No] Were any procedures done? @ -[No] Diagnosis/symptom? @ -Acute headache Acute, or Chronic, or Acute on Chronic? @ -[Acute Uncomplicated (without systemic symptoms) or Complicated (systemic symptoms)? @ -[Uncomplicated Side effects of treatment? @ -[No] Exacerbation, Progression, or Severe Exacerbation? @ -[No] Poses a threat to life or bodily function? How? (Chest pain, [place], [place], pneumonia, PE, COPD, DKA, ARF, appy, cholecystitis, CVA, Diverticulitis, Homicidal, Suicidal, threat to staff... and all critical care pts) @ -[No] Disposition Clinical Impression: Headache Disposition: HOME SELF-CARE Condition: Good Instructions (If sedation given, give patient instructions): Acute Headache (ED) Is patient prescribed a controlled substance at d/c from ED?: No Referrals: Miguel Chung MD [Primary Care Provider] - 1-2 days
[2024-02-27] MEDS: IBUPROFEN 800 MG TAB PO STA (04:53)
[2024-02-27] MEDS: diphenhydrAMINE 50 MG CAP PO STA (04:53)
[2024-02-27] MEDS: METOCLOPRAMIDE 10 MG TAB PO STA (04:54)
[2024-02-27] MEDS: METOCLOPRAMIDE 5 MG/ML 2 ML VIAL IM STA (06:04)
[2024-02-27] MEDS: SUMAtriptan succinate 6 MG/0.5 ML VIAL SQ STA (06:05)
[2024-02-27 07:15] VITALS: BP 166/91; PULSE 60; RESP 18; TEMP 98.3
== END 2024-02-27 07:15 | disposition home or self-care (01) ==
LOC: EC 03:21
DX: R51.9 Headache, unspecified (principal); F17.200 Nicotine dependence, unspecified, uncomplicated; Z88.1 Allergy status to other antibiotic agents
CPT/HCPCS: 99284; J3030

== ENCOUNTER → 2024-06-08 | Outpatient (CLI) | payer OTHER ==
[2024-06-08 15:33] LABS: Basophils # (A) 0.09 X 10*3/uL (0.00-0.10); Basophils % (A) 0.8 %; Eosinophils % (A) 4.3 %; HCT 42.9 % (37.2-46.3); Lymphocytes # (A) 3.86 X 10*3/uL (0.90-5.00); Lymphocytes % (A) 32.9 %; MCH 28.6 pg (27.0-32.0); MCHC 32.6 g/dL (32.0-37.0); MCV 87.6 FL (80.0-97.0); Mean Platelet Volume 11.1 FL (9.5-12.2); Monocytes # (A) 0.58 X 10*3/uL (0.20-1.00); Monocytes % (A) 4.9 %; NRBC Per 100 WBC 0 X 10*3/uL (0.00-0.01); Neutrophils # (A) 6.63 X 10*3/uL (1.80-7.70); Neutrophils % (A) 56.6 %; Platelet Count 323 X 10*3/uL (140-440); RDW 14.6 % (11.5-14.5); WBC 11.72 X 10*3/uL (4.50-10.00)
== END | disposition home or self-care (01) ==
LOC: LABWHC1 09:12
PROVIDERS: ATTEND Surgery
DX: Z01.818 Encounter for other preprocedural examination (principal); K43.2 Incisional hernia without obstruction or gangrene
CPT/HCPCS: 36415; 85025; 86850; 86900; 86901; 93005

== ENCOUNTER 2024-06-13 05:42 | Day surgery (SDC) | payer OTHER ==
[2024-06-08 09:56] VITALS: BMI 39.3
[2024-06-13] MEDS ORDERED: SCOPOLAMINE 1 MG/72 HR PATCH TRANSDERM ONE (06:30)
[2024-06-13] MEDS: DEXAMETHASONE SOD PHOSPHATE 4 MG/ML 1 ML VIAL IV ONE (06:50)
[2024-06-13] MEDS: ONDANSETRON 4 MG/2 ML VIAL IVP ONE (06:50)
[2024-06-13] MEDS: HEPARIN SODIUM,PORCINE 5,000 UNIT/ML 1 ML VIAL SQ PRN (06:51)
[2024-06-13] MEDS: ACETAMINOPHEN TAB 500 MG TAB PO PRN (06:52)
[2024-06-13] MEDS: IV FLUID CONTINUATION 1,000 ML IV ONE ×3 (06:58→10:27)
[2024-06-13] MEDS ORDERED: MIDAZOLAM 2 MG/2 ML VIAL IV PRN (07:00)
[2024-06-13] MEDS ORDERED: ROCURONIUM 10 MG/ML (5 ML VIAL) IV ONE (07:32)
[2024-06-13] MEDS ORDERED: SUGAMMADEX SODIUM 200 MG/2 ML SDV IV ONE (07:32)
[2024-06-13] MEDS ORDERED: MIDAZOLAM 2 MG/2 ML VIAL ONE (07:32)
[2024-06-13] MEDS ORDERED: KETOROLAC 15 MG/ML 1 ML VIAL ONE (07:32)
[2024-06-13] MEDS ORDERED: SUCCINYLCHOLINE CHLORIDE 200 MG/10 ML VIAL IV ONE (07:32)
[2024-06-13] MEDS ORDERED: PROPOFOL 10 MG/ML 20 ML VIAL IV ONE (07:32)
[2024-06-13] MEDS ORDERED: HYDROmorphone (PF) 1 MG/ML ONE (07:32)
[2024-06-13] MEDS ORDERED: fentaNYL (PF) 50 MCG/ML 2 ML AMP ONE (07:32)
[2024-06-13] MEDS ORDERED: LIDOCAINE 1% INJ 10MG/ML (20 ML MDV) ONE (07:32)
[2024-06-13] MEDS ORDERED: GLYCOPYRROLATE 0.2 MG/ML 2 ML VIAL ONE (07:32)
[2024-06-13] MEDS ORDERED: NEOSTIGMINE 1 MG/ML 10 ML VIAL ONE (07:32)
[2024-06-13] MEDS ORDERED: KETAMINE HCL IN 0.9 % NACL 50 MG/5 ML SYRINGE ONE (07:32)
[2024-06-13] MEDS: LIDOCAINE 1%-EPI 1:100,000 20 ML VIAL SQ ONE ×2 (07:59)
[2024-06-13 09:08] VITALS: TEMP 96.9
[2024-06-13] MEDS: HYDROmorphone 0.5 MG/0.5 ML SYRINGE IVP PRN (09:34)
[2024-06-13] MEDS: LACTATED RINGERS 1,000 ML IV SCH (10:09)
--- NOTE | 2024-06-13 10:32 | P.OP ---
Date of Procedure: 06/13/24 Preoperative Diagnosis: Incarcerated incisional hernia Postoperative Diagnosis: Incarcerated incisional hernia Procedure(s) Performed: Laparoscopic robotic repair of incarcerated central hernia Partial omentectomy Transversus abdominis plane block Anesthesia: THERON Surgeon: Keegan Fisher Estimated Blood Loss (ml): 5 Pathology: other (Omentum) Condition: stable Disposition: PACU Operative Findings: Low midline incarcerate incisional hernia related to the previous Pfannenstiel incision with incarcerated omentum Description of Procedure: The patient was placed on the operating table in the supine position. He received general anesthesia. His abdomen was prepped and draped usual fashion. Using a 5 mm optical trocar under direct visualization the peritoneal cavity was entered in the left upper quadrant. The abdomen was then insufflated. The laparoscope was placed back into the perineal cavity. Next a 8 mm robotic trocar was placed in the left lower quadrant and a 12 mm robotic trocar was placed in the left lateral position. The original 5 mm trocar was exchanged for a 8 mm robotic trocar. The patient's placed in the left side up position. And the patient was docked to the robot. A four-quadrant transversus abdominis blocks performed with 1% local Xylocaine. The incisional hernia was visualized. Using hook cautery the peritoneum over the incisional hernia was excised. The incarcerated h omentum was dissected free and sent to pathology. The fascial opening was repaired using 0V LOC suture. Next a piece of 11 cm round ventral light ST mesh was placed into the. Cavity and secured with 2 OV lock suture. The patient was undocked the robot. The needles were retrieved. The fascia of the 12 mm trocar site was closed with 0 Ethibond suture. Skin was closed interrupted 3-0 Monocryl suture. Dermabond dressings was applied. Patient tolerated procedure well and was sent to recovery room stable condition.
[2024-06-13] MEDS: METOCLOPRAMIDE 5 MG/ML 2 ML VIAL IVP STA (12:58)
[2024-06-13 13:24] VITALS: BP 121/62; PULSE 79; RESP 16
== END 2024-06-13 13:27 | disposition home or self-care (01) ==
LOC: OR 05:42
PROVIDERS: ATTEND Surgery
DX: K43.0 Incisional hernia with obstruction, without gangrene (principal); E78.5 Hyperlipidemia, unspecified; F17.210 Nicotine dependence, cigarettes, uncomplicated; Z79.899 Other long term (current) drug therapy; Z90.710 Acquired absence of both cervix and uterus; Z90.49 Acquired absence of other specified parts of digestive tract; Z98.890 Other specified postprocedural states; Z88.1 Allergy status to other antibiotic agents
CPT/HCPCS: 49592; S2900; 88305